=== PATIENT | female | born 1950 | race Two or more races ===

== ENCOUNTER 2016-04-24 12:51 | Emergency (ER) | payer OTHER ==
[2016-04-24 13:11] VITALS: BMI 22.6
[2016-04-24 17:13] LABS: BASOPHIL 1.2 % (0-2.0); EOSINOPHIL 4.5 % (0-4.5); MCHC 33.1 g/dl (32.0-36.0); MEAN CELL VOLUME 93.6 fl (80-96); MEAN PLT VOLUME 9.3 fl (7.5-11.1); NEUTROPHILS 60.7 % (42.8-82.8); PLATELET COUNT 265 K/MM3 (134-434); WHITE BLOOD COUNT 8.3 K/mm3 (4.0-10.0)
--- NOTE | 2016-04-24 17:25 | PDOC ---
History of Present Illness - General Chief Complaint: Pain Stated Complaint: PAIN/ RT FOOT Time Seen by Provider: 04/24/16 15:15 History Source: Patient Exam Limitations: No Limitations - History of Present Illness Initial Comments: 04/24/16 17:26 66-year-old female presents to the ED with complaints of a bump to the right side of her foot that has been there for roughly 1 month. Patient now states that radiation intimately to her right knee but skin discoloration, swelling, decreased sensation, or difficulty ambulating. Patient also states did not mention this to her PCP and decided come to the ER today for further evaluation. Patient states has mild discomfort with ambulation and denies poor fitting shoes. Patient states has not taken anything for the pain and denies any recent injury to the affected area. patient denies history of gout but has history of arthritis. Timing/Duration: constant (1 month) Severity: mild Modifying Factors: improves with: movement Associated Symptoms: reports: denies symptoms Past History - Past Medical History Allergies/Adverse Reactions: Allergies Allergy/AdvReac Type Severity Reaction Status Date / Time No Known Allergies Allergy Verified 04/24/16 13:11 Home Medications: Ambulatory Orders Atorvastatin Ca [Lipitor] 20 mg PO HS 04/24/16 Diltiazem HCl [Diltiazem 24Hr Cd] 120 mg PO DAILY 04/24/16 Glyburide [Diabeta -] 5 mg PO DAILY 04/24/16 Metformin HCl [Glucophage] 1,000 mg PO BID 04/24/16 Montelukast Na [Singulair -] 10 mg PO HS 04/24/16 Sitagliptin Phosphate [Januvia] 100 mg PO DAILY 04/24/16 Asthma: Yes Diabetes: Yes HTN: Yes - Psycho/Social/Smoking Cessation Hx Suicidal Ideation: No Smoking History: Never smoked Information on smoking cessation initiated: No Hx Alcohol Use: No Drug/Substance Use Hx: No Substance Use Type: None Patient Lives Alone: No Lives with/in: spouse/SO Review of Systems - Review of Systems Able to Perform ROS?: Yes Constitutional: No: Symptoms Reported HEENTM: No: Symptoms Reported Respiratory: No: Symptoms reported Musculoskeletal: Yes: Joint Pain (right foot ,right knee). No: Joint Swelling, Muscle Pain, Muscle Weakness, Joint Stiffness Integumentary: Yes: Lumps Neurological: No: Symptoms reported Endocrine: No: Symptoms Reported Hematologic/Lymphatic: No: Symptoms Reported *Physical Exam - Vital Signs Last Vital Signs Temp Pulse Resp BP Pulse Ox 98.5 F 88 18 133/73 97 04/24/16 13:07 04/24/16 13:07 04/24/16 13:07 04/24/16 13:07 04/24/16 13:07 - Physical Exam General Appearance: Yes: Nourished, Appropriately Dressed. No: Apparent Distress Extremity: positive: Normal Capillary Refill, Normal Range of Motion, Tender ( fixed firm 2 x 2 cm mass over the right midshaft of fifth metatarsal. no crepitus or limited ROM of rt 5th toe). negative: Normal Inspection, Pedal Edema Integumentary: negative: Erythema, Ecchymosis Neurologic: positive: Motor Strength 5/5 (ambulatory) ED Treatment Course - LABORATORY CBC & Chemistry Diagram: 04/24/16 16:40 04/24/16 16:40 - RADIOLOGY Radiology Studies Ordered: Category Date Time Status FOOT-RIGHT [RAD] Stat Radiology 04/24/16 16:25 Ordered Medical Decision Making - Medical Decision Making 04/24/16 17:30 Patient with complaints of tender bump to the right side of foot for the past month having to her right knee. Patient does have history of arthritis but denies history of gout. My exam this is likely due friction over the bony prominence vs old fracture. Patient was ordered for labs and xray 04/24/16 18:09 Laboratory Tests 04/24/16 04/24/16 16:40 16:40 WBC 8.3 Hgb 13.1 Hct 39.6 Neutrophils % 60.7 Sodium 138 Potassium 4.9 Chloride 101 Carbon Dioxide 28 Anion Gap 9 BUN 16 D Creatinine 0.6 Creat Clearance w eGFR > 60 Random Glucose 228 H Calcium 9.4 Magnesium 2.1 Total Bilirubin 0.3 D AST 13 L ALT 22 X-ray shows a faint lucent line at the base of the fifth metatarsal bone seen essentially on the frontal view only consistent with a nondisplaced fracture. Patient will be placed in an orthopedic shoe and told to follow-up with Dr. Maki. *DC/Admit/Observation/Transfer Diagnosis at time of Disposition: Fracture of metatarsal bone Qualifiers: Encounter type: initial encounter Metatarsal bone: fifth Fracture type: closed Fracture alignment: nondisplaced Laterality: right Qualified Code(s): S92.354A - Nondisplaced fracture of fifth metatarsal bone, right foot, initial encounter for closed fracture - Discharge Dispostion Disposition: HOME Condition at time of disposition: Good - Referrals Referrals: Hiren Morales MD [Primary Care Provider] - Gabo Maki MD [Staff Physician] - - Patient Instructions Printed Discharge Instructions: DI for Foot Fracture Additional Instructions: I recommend wearing the orthopedic shoe during the day and remove at night. Please follow-up with referred orthopedist although this may heal up on its own.
[2016-04-24 17:35] LABS: ALBUMIN 3.5 g/dl (3.4-5.0); ANION GAP 9 (8-16); CALCIUM 9.4 mg/dL (8.5-10.1); CO2 28 mmol/L (21-32); GLUCOSE,RANDOM 228 mg/dL (74-106); MAGNESIUM 2.1 mg/dL (1.8-2.4)
[2016-04-24 17:38] LABS: ALK PHOS 76 U/L (45-117); BILIRUBIN,TOTAL 0.3 mg/dL (0.2-1.0); CREATININE 0.6 mg/dL (0.55-1.02); SGOT/AST 13 U/L (15-37); SGPT/ALT 22 U/L (12-78)
[2016-04-24 18:30] VITALS: BP 154/68; PULSE 67; TEMP 97.4
== END 2016-04-24 18:30 | disposition home or self-care (01) ==
LOC: JER 12:51
DX: S92.354A Nondisplaced fracture of fifth metatarsal bone, right foot, initial encounter for closed fracture (principal); X58.XXXA Exposure to other specified factors, initial encounter; Y93.9 Activity, unspecified; Y92.9 Unspecified place or not applicable; J45.909 Unspecified asthma, uncomplicated; E11.9 Type 2 diabetes mellitus without complications; I10 Essential (primary) hypertension
CPT/HCPCS: 36415; 73630-TC-RT; 80053; 83735; 85025; 99284-25

== ENCOUNTER 2016-04-25 17:14 | Emergency (ER) | payer OTHER ==
--- NOTE | 2016-04-25 17:34 | PDOC ---
Rapid Medical Evaluation Time Seen by Provider: 04/25/16 17:33 Medical Evaluation: I have performed a brief in-person evaluation of this patient. The patient presents with a chief complaint of: Toe pain. 66 yo F history HTN, DM, asthma, seen in ED for toe fracture yesterday. She states that she has been taking tylenol without relief. Pertinent physical exam findings: +Tenderness and swelling over the base of 5th metatarsal. I have ordered the following: Rx for tramadol The patient will proceed to the ED for further evaluation
[2016-04-25 17:40] VITALS: BP 157/61; PULSE 81; TEMP 98.1; BMI 22.6
--- NOTE | 2016-04-25 18:01 | PDOC ---
History of Present Illness - General Chief Complaint: RX Refill Stated Complaint: PRESCRIPTION Time Seen by Provider: 04/25/16 17:33 History Source: Patient Exam Limitations: No Limitations - History of Present Illness Initial Comments: 04/25/16 18:49 Agent was seen and treated here for foot fracture yesterday but given no pain medications. Patient has used ibuprofen with minimal resolved in status, is wearing cashew keeping elevated but is complaining of severe pain to her foot. Occurred: reports: just prior to arrival Severity: reports: moderate, severe Pain Location: reports: lower extremity (left foot) Method of Injury: Yes: fall Past History - Travel Traveled outside of the country in the last 30 days: No Close contact w/someone who was outside of country & ill: No - Past Medical History Allergies/Adverse Reactions: Allergies Allergy/AdvReac Type Severity Reaction Status Date / Time No Known Allergies Allergy Verified 04/25/16 17:35 Home Medications: Ambulatory Orders Atorvastatin Ca [Lipitor] 20 mg PO HS 04/24/16 Diltiazem HCl [Diltiazem 24Hr Cd] 120 mg PO DAILY 04/24/16 Glyburide [Diabeta -] 5 mg PO DAILY 04/24/16 Metformin HCl [Glucophage] 1,000 mg PO BID 04/24/16 Montelukast Na [Singulair -] 10 mg PO HS 04/24/16 Sitagliptin Phosphate [Januvia] 100 mg PO DAILY 04/24/16 Tramadol HCl 50 mg PO Q6H PRN #12 tablet MDD 4 tabs 04/25/16 Asthma: Yes Diabetes: Yes HTN: Yes - Psycho/Social/Smoking Cessation Hx Suicidal Ideation: No Smoking History: Never smoked Hx Alcohol Use: No Drug/Substance Use Hx: No Substance Use Type: None Review of Systems - Review of Systems Able to Perform ROS?: No Is the patient limited Tajik proficient: No Constitutional: Yes: Symptoms Reported, See HPI, Malaise HEENTM: No: Symptoms Reported All Other Systems: Reviewed and Negative *Physical Exam - Vital Signs Last Vital Signs Temp Pulse Resp BP Pulse Ox 98.1 F 81 16 157/61 96 04/25/16 17:35 04/25/16 17:35 04/25/16 17:35 04/25/16 17:35 04/25/16 17:35 - Physical Exam General Appearance: Yes: Appropriately Dressed, Apparent Distress Neck: positive: Supple Musculoskeletal: positive: Normal Inspection, Decreased Range of Motion (due to pain) Integumentary: positive: Normal Color 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: 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: 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, Fully Oriented, Alert, Normal Mood/ Affect Progress Note - Progress Note Progress Note: foot pain due to fracture *DC/Admit/Observation/Transfer Diagnosis at time of Disposition: Foot fracture, right Qualifiers: Encounter type: initial encounter Fracture type: closed Qualified Code(s): S92.901A - Unspecified fracture of right foot, initial encounter for closed fracture - Discharge Dispostion Disposition: HOME Condition at time of disposition: Stable Admit: No - Prescriptions Prescriptions: Tramadol HCl 50 mg PO Q6H PRN #12 tablet MDD 4 tabs PRN Reason: Pain - Referrals Referrals: Hiren Morales MD [Primary Care Provider] - Gabo Maki MD [Staff Physician] - - Patient Instructions Printed Discharge Instructions: DI for Foot Fracture Additional Instructions: Rest, ice to area on and off for 15 minutes 4-6 times a day Avoid heavy lifting or exercise until pain and swelling is resolved or until further directed Keep area highly elevated to reduce swelling Use splints/Samuel wrap as directed Followup with orthopedist in one to 2 days if not improving, if significantly improved may wait one week for followup with orthopedist May use ibuprofen 2-200 mg tablets every 6 hours as needed for pain
== END 2016-04-25 18:15 | disposition home or self-care (01) ==
LOC: JER 17:14
DX: S92.901A Unspecified fracture of right foot, initial encounter for closed fracture (principal); E11.9 Type 2 diabetes mellitus without complications; I10 Essential (primary) hypertension; J45.909 Unspecified asthma, uncomplicated; Z79.84 Long term (current) use of oral hypoglycemic drugs
CPT/HCPCS: 99281-25

== ENCOUNTER 2017-07-20 10:51 | Emergency (ER) | payer OTHER ==
[2017-07-20 11:04] VITALS: BMI 22.8
[2017-07-20] MEDS ORDERED: KETOROLAC TROMETHAMINE 60 MG/2 ML VIAL IM ONE (11:20)
--- NOTE | 2017-07-20 11:23 | PDOC ---
History of Present Illness - General Chief Complaint: Chest Pain Stated Complaint: CHEST PAIN Time Seen by Provider: 07/20/17 11:07 History Source: Patient Exam Limitations: No Limitations - History of Present Illness Initial Comments: 07/20/17 11:16 Status post trip and fall last week falling onto her right side and incurring an injury to her right lateral rib/chest wall. States was painful, used ibuprofen but has not had significant pain relief. 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 Denies cough, fevers , shortness of breath, abdominal pain or any other injury. Shoulders arm and hip intact. Occurred: reports: last week Severity: reports: moderate Pain Location: reports: chest Method of Injury: Yes: direct blow, fall Loss of Consciousness: no loss of consciousness Associated Symptoms (Fall): chest pain (right chest wall) Past History - Travel Traveled outside of the country in the last 30 days: No Close contact w/someone who was outside of country & ill: No - Past Medical History Allergies/Adverse Reactions: Allergies Allergy/AdvReac Type Severity Reaction Status Date / Time No Known Allergies Allergy Verified 07/20/17 11:02 Home Medications: Ambulatory Orders Atorvastatin Ca [Lipitor] 20 mg PO HS 04/24/16 Diltiazem HCl [Diltiazem 24Hr Cd] 120 mg PO DAILY 04/24/16 Montelukast Na [Singulair -] 10 mg PO HS 04/24/16 Sitagliptin Phosphate [Januvia] 100 mg PO DAILY 04/24/16 Albuterol Sulfate [Proair Hfa] 8.5 gm IH PRN 07/20/17 Budesonide/Formeterol Fumarate [SYMBICORT 160/4.5mcg -] 1 inh PO DAILY 07/20/17 Metoprolol Succinate [Toprol Xl] 25 mg PO DAILY 07/20/17 Mirtazapine 15 mg PO DAILY 07/20/17 Naproxen 500 mg PO PRN PRN 07/20/17 Oxybutynin Chloride [Ditropan Xl] 10 mg PO DAILY 07/20/17 Oxycodone HCl/Acetaminophen [Percocet 5-325 mg Tablet -] 1 - 2 tab PO Q4H PRN # 10 tablet MDD 4 07/20/17 Pantoprazole Sodium 40 mg PO DAILY 07/20/17 Tolterodine Tartrate [Tolterodine Tartrate ER] 4 mg PO DAILY 07/20/17 Valsartan [Diovan] 80 mg PO DAILY 07/20/17 Valsartan [Diovan] 80 mg PO DAILY 07/20/17 Asthma: Yes COPD: No Diabetes: Yes HTN: Yes - Suicide/Smoking/Psychosocial Hx Smoking History: Never smoked Hx Alcohol Use: No Drug/Substance Use Hx: No Substance Use Type: None Review of Systems - Review of Systems Able to Perform ROS?: Yes Is the patient limited Spanish proficient: Yes Constitutional: Yes: Symptoms Reported, See HPI. No: Fever, Malaise HEENTM: Yes: See HPI. No: Symptoms Reported Respiratory: Yes: Symptoms reported, See HPI, Other (chest wall pain and pain with deep inspiration primarily right mid lateral wall). No: Cough Cardiac (ROS): No: Symptoms Reported ABD/GI: No: Symptoms Reported Musculoskeletal: No: Symptoms Reported Integumentary: Yes: Symptoms Reported, See HPI, Bruising All Other Systems: Reviewed and Negative *Physical Exam - Vital Signs Last Vital Signs Temp Pulse Resp BP Pulse Ox 98 F 81 18 138/65 99 07/20/17 10:56 07/20/17 10:56 07/20/17 10:56 07/20/17 10:56 07/20/17 10:56 - Physical Exam General Appearance: Yes: Nourished, Appropriately Dressed, Apparent Distress, Mild Distress HEENT: positive: KENIA, Normal ENT Inspection, TMs Normal, Pharynx Normal Neck: positive: Supple. negative: Tender, Lymphadenopathy (R), Lymphadenopathy (L) Respiratory/Chest: positive: Lungs Clear (no wheezing or retractions, has some mild pleuritic type chest pain to the right side however breath sounds are good and well aerated.), Normal Breath Sounds, Other (tenderness and bruising noted to right midaxillary line approximately rib 789 area, with some crepitus noted to the lateral to that area with point tenderness. Diminished soft, with no tenderness to right upper quadrant). negative: Respiratory Distress, Labored Respiration, Rhonchi, Wheezing, Plerual Rub Cardiovascular: positive: Regular Rhythm Gastrointestinal/Abdominal: positive: Normal Bowel Sounds, Soft. negative: Tender (, no bruising or bloating.), Distended, Guarding, Hepatomegaly Musculoskeletal: positive: Normal Inspection Extremity: positive: Normal Capillary Refill, Normal Inspection, Normal Range of Motion. 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 Will treat with Percocet as is probable healing rib fracture/contusion and rest. Patient understands plan and provide incentive spirometer with instructions for use. 07/20/17 13:16 *DC/Admit/Observation/Transfer Diagnosis at time of Disposition: Rib fractures Qualifiers: Encounter type: initial encounter Rib fracture type: single rib Fracture type: closed Laterality: right Qualified Code(s): S22.31XA - Fracture of one rib, right side, initial encounter for closed fracture - Discharge Dispostion Disposition: HOME Condition at time of disposition: Stable Decision to Admit order: No - Prescriptions Prescriptions: Oxycodone HCl/Acetaminophen [Percocet 5-325 mg Tablet -] 1 - 2 tab PO Q4H PRN # 10 tablet MDD 4 PRN Reason: Pain - Referrals Referrals: Hiren Morales MD [Primary Care Provider] - - Patient Instructions Printed Discharge Instructions: DI for Rib Fracture Additional Instructions: Rest, ice to area on and off for 15 minutes 4-6 times a day Avoid heavy lifting or exercise until pain and swelling is resolved or until further directed May use Tylenol or small pillow to splint chest to help assist taking big deep breath. Use incentive spirometer 10 puffs 4 times to 8 times a day to keep lungs clear and per help prevent infections Followup with private physician in one to 2 days if not improving, May use ibuprofen 2-200 mg tablets every 6 hours as needed for pain Mayt use 1/2, 1-2 tabs of Percocet every 6 hours as needed for severe pain - knowiing will make dizzy and sleepy! Return to emergency department for worsened pain, problems with breathing, fevers, cough or other problems. - Post Discharge Activity
[2017-07-20] MEDS ORDERED: KETOROLAC TROMETHAMINE 30 MG/1 ML VIAL ONE (11:27)
[2017-07-20 13:36] VITALS: BP 106/78; PULSE 71; TEMP 98.2
== END 2017-07-20 13:37 | disposition home or self-care (01) ==
LOC: JER 10:51
PROC: 3E0233Z Introduction of Anti-inflammatory into Muscle, Percutaneous Approach (ICD-10-PCS; principal; 2017-07-20)
DX: S22.31XA Fracture of one rib, right side, initial encounter for closed fracture (principal); W01.0XXA Fall on same level from slipping, tripping and stumbling without subsequent striking against object, initial encounter; Y93.89 Activity, other specified; Y92.89 Other specified places as the place of occurrence of the external cause; Y99.8 Other external cause status; I10 Essential (primary) hypertension; E11.9 Type 2 diabetes mellitus without complications; Z79.84 Long term (current) use of oral hypoglycemic drugs; J45.909 Unspecified asthma, uncomplicated
CPT/HCPCS: 71101-TC-RT-FY; 96372; 99282-25

== ENCOUNTER 2018-02-01 12:21 | Emergency (ER) | payer OTHER ==
[2018-02-01 12:29] VITALS: BP 137/65; PULSE 90; TEMP 98.1; BMI 22.6
--- NOTE | 2018-02-01 12:44 | PDOC ---
History of Present Illness - General Chief Complaint: Pain, Acute Stated Complaint: EARACHE, BURN Time Seen by Provider: 02/01/18 12:33 History Source: Patient - History of Present Illness Initial Comments: 02/01/18 13:55 67 year old female with left ear hearing loss over the several weeks. patient was given debrox for cerumen with some imporvement. continue to have decreased hearing in the left ear. patient reports that 3 days ago spilled hot coffee onto left breast sustained a small burn. had minimal pain at the site. Past History - Past Medical History Allergies/Adverse Reactions: Allergies Allergy/AdvReac Type Severity Reaction Status Date / Time No Known Allergies Allergy Verified 02/01/18 12:23 Home Medications: Ambulatory Orders Atorvastatin Ca [Lipitor] 20 mg PO HS 04/24/16 Diltiazem HCl [Diltiazem 24Hr Cd] 120 mg PO DAILY 04/24/16 Montelukast Na [Singulair -] 10 mg PO HS 04/24/16 Sitagliptin Phosphate [Januvia] 100 mg PO DAILY 04/24/16 Albuterol Sulfate [Proair Hfa] 8.5 gm IH PRN 07/20/17 Budesonide/Formeterol Fumarate [SYMBICORT 160/4.5mcg -] 1 inh PO DAILY 07/20/17 Metoprolol Succinate [Toprol Xl] 25 mg PO DAILY 07/20/17 Mirtazapine 15 mg PO DAILY 07/20/17 Naproxen 500 mg PO PRN PRN 07/20/17 Oxybutynin Chloride [Ditropan Xl] 10 mg PO DAILY 07/20/17 Oxycodone HCl/Acetaminophen [Percocet 5-325 mg Tablet -] 1 - 2 tab PO Q4H PRN # 10 tablet MDD 4 07/20/17 Pantoprazole Sodium 40 mg PO DAILY 07/20/17 Tolterodine Tartrate [Tolterodine Tartrate ER] 4 mg PO DAILY 07/20/17 Valsartan [Diovan] 80 mg PO DAILY 07/20/17 Valsartan [Diovan] 80 mg PO DAILY 07/20/17 Cephalexin Monohydrate [Keflex -] 500 mg PO Q6H #40 capsule 02/01/18 Silver Sulfadiazine [Silvadene] 1 applic TP QID #1 cream..g. 02/01/18 Asthma: Yes COPD: No Diabetes: Yes HTN: Yes - Suicide/Smoking/Psychosocial Hx Smoking History: Never smoked Have you smoked in the past 12 months: No Information on smoking cessation initiated: Yes Hx Alcohol Use: No Drug/Substance Use Hx: No Substance Use Type: None *Physical Exam - Vital Signs Last Vital Signs Temp Pulse Resp BP Pulse Ox 98.1 F 90 18 137/65 98 02/01/18 12:23 02/01/18 12:23 02/01/18 12:23 02/01/18 12:23 02/01/18 12:23 - Physical Exam General Appearance: Yes: Appropriately Dressed HEENT: positive: Other (left ear partial occluded by cerumen no erythema) Respiratory/Chest: positive: Lungs Clear, Normal Breath Sounds Integumentary: positive: Other (erythema with minimal crusting to left breast curn site) Neurologic: positive: Fully Oriented, Alert, Normal Mood/Affect Moderate Sedation - Procedure Monitoring Vital Signs: Procedure Monitoring Vital Signs Temperature 98.1 F 02/01/18 12:23 Pulse Rate 90 02/01/18 12:23 Respiratory Rate 18 02/01/18 12:23 Blood Pressure 137/65 02/01/18 12:23 O2 Sat by Pulse Oximetry (%) 98 02/01/18 12:23 *DC/Admit/Observation/Transfer Diagnosis at time of Disposition: Cellulitis Qualifiers: Site of cellulitis: other site Qualified Code(s): L03.818 - Cellulitis of other sites Left ear hearing loss Qualifiers: Hearing loss type: unspecified Qualified Code(s): H91.92 - Unspecified hearing loss, left ear - Discharge Dispostion Disposition: HOME - Prescriptions Prescriptions: Cephalexin Monohydrate [Keflex -] 500 mg PO Q6H #40 capsule Silver Sulfadiazine [Silvadene] 1 applic TP QID #1 cream..g. - Referrals Referrals: Hiren Morales MD [Primary Care Provider] - Bennett Marcial MD [Staff Physician] - Call tomorrow - Patient Instructions Printed Discharge Instructions: Cellulitis Additional Instructions: apply silvadene to the burn area. take cephalexin as ordered. follow up with your doctor in 2 days for a wound check. return to the ER if symptoms worsen including fever, redness spreading/ streaking, / increased. please follow up with ENT for hearing test and evaluation - Post Discharge Activity
[2018-02-01] MEDS ORDERED: SILVER SULFADIAZINE 1% TOP CREAM 50 GM JAR TP ONE (13:03)
== END 2018-02-01 13:16 | disposition home or self-care (01) ==
LOC: JERFT 12:21
DX: L03.818 Cellulitis of other sites (principal); H91.92 Unspecified hearing loss, left ear; X10.0XXA Contact with hot drinks, initial encounter; Y93.89 Activity, other specified; Y92.89 Other specified places as the place of occurrence of the external cause; I10 Essential (primary) hypertension; J45.909 Unspecified asthma, uncomplicated; E11.9 Type 2 diabetes mellitus without complications
CPT/HCPCS: 99281-25

== ENCOUNTER 2018-08-02 11:21 | Inpatient (IN) | payer OTHER ==
[2018-08-02] MEDS ORDERED: MECLIZINE HCL 25 MG TABLET (FP) PO ONE (12:09)
--- NOTE | 2018-08-02 12:34 | PDOC ---
History of Present Illness - General Chief Complaint: Lightheaded Stated Complaint: DIZZY Time Seen by Provider: 08/02/18 11:56 - History of Present Illness Initial Comments: 08/02/18 13:07 68f with pmh of asthma and HTN presents to the Ed with dizziness/vertigo and change in vision symptoms for the past 2 days associated with difficulty walking. She went to the ER yesterday at [facility] and was discharge after Ct head, labs and ekg were found within normal limits. She says she never had those symptoms before. PCP: Andrew Past History - Past Medical History Allergies/Adverse Reactions: Allergies Allergy/AdvReac Type Severity Reaction Status Date / Time No Known Allergies Allergy Verified 02/01/18 12:23 Home Medications: Ambulatory Orders Atorvastatin Ca [Lipitor] 20 mg PO HS 04/24/16 Diltiazem HCl [Diltiazem 24Hr Cd] 120 mg PO DAILY 04/24/16 Montelukast Na [Singulair -] 10 mg PO HS 04/24/16 Sitagliptin Phosphate [Januvia] 100 mg PO DAILY 04/24/16 Albuterol Sulfate [Proair Hfa] 8.5 gm IH PRN 07/20/17 Budesonide/Formeterol Fumarate [SYMBICORT 160/4.5mcg -] 1 inh PO DAILY 07/20/17 Metoprolol Succinate [Toprol Xl] 25 mg PO DAILY 07/20/17 Mirtazapine 15 mg PO DAILY 07/20/17 Naproxen 500 mg PO PRN PRN 07/20/17 Oxybutynin Chloride [Ditropan Xl] 10 mg PO DAILY 07/20/17 Oxycodone HCl/Acetaminophen [Percocet 5-325 mg Tablet -] 1 - 2 tab PO Q4H PRN # 10 tablet MDD 4 07/20/17 Pantoprazole Sodium 40 mg PO DAILY 07/20/17 Tolterodine Tartrate [Tolterodine Tartrate ER] 4 mg PO DAILY 07/20/17 Valsartan [Diovan] 80 mg PO DAILY 07/20/17 Cephalexin Monohydrate [Keflex -] 500 mg PO Q6H #40 capsule 02/01/18 Silver Sulfadiazine [Silvadene] 1 applic TP QID #1 cream..g. 02/01/18 Asthma: Yes COPD: No Diabetes: Yes HTN: Yes - Immunization History Immunization Up to Date: No - Suicide/Smoking/Psychosocial Hx Smoking History: Never smoked Have you smoked in the past 12 months: No Information on smoking cessation initiated: No Hx Alcohol Use: No Drug/Substance Use Hx: No Substance Use Type: None Review of Systems - Review of Systems Able to Perform ROS?: Yes Is the patient limited Korean proficient: No Constitutional: No: Symptoms Reported HEENTM: Yes: Blurred Vision Respiratory: No: Symptoms reported Cardiac (ROS): No: Symptoms Reported ABD/GI: No: Symptoms Reported : No: Symptoms Reported Musculoskeletal: No: Symptoms Reported Integumentary: No: Symptoms Reported Neurological: Yes: Unsteady Gait, Dizziness. No: Headache, Numbness, Paresthesia, Seizure, Tingling All Other Systems: Reviewed and Negative *Physical Exam - Vital Signs Last Vital Signs Temp Pulse Resp BP Pulse Ox 98.6 F 96 H 16 143/68 95 08/02/18 11:27 08/02/18 11:27 08/02/18 11:27 08/02/18 11:27 08/02/18 11:27 - Physical Exam General Appearance: Yes: Nourished, Appropriately Dressed, Moderate Distress HEENT: positive: EOMI, KENIA, Normal ENT Inspection Respiratory/Chest: positive: Lungs Clear, Normal Breath Sounds. negative: Chest Tender, Respiratory Distress Cardiovascular: positive: Regular Rhythm, Regular Rate, S1, S2 Gastrointestinal/Abdominal: positive: Normal Bowel Sounds, Flat, Soft. negative : Tender Neurologic: positive: Fully Oriented, Alert. 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 ) ED Treatment Course - LABORATORY CBC & Chemistry Diagram: 08/02/18 14:00 08/02/18 14:00 Medical Decision Making - Medical Decision Making 08/02/18 13:11 68F with cerebella ataxia and dizziness/vertigo as well as changes in vision. Will need to r/o for posterior stroke. Stroke workup and Neurology consult. Will admit to stroke unit. Patient will get MRI/MRA 08/02/18 14:50 Patent hyperglycemic at 487. Will give bolus of NS *DC/Admit/Observation/Transfer Diagnosis at time of Disposition: Dizziness, Cerebellar ataxia - Discharge Dispostion Condition at time of disposition: Stable Decision to Admit order: Yes - Referrals - Patient Instructions - Post Discharge Activity
[2018-08-02] MEDS ORDERED: MECLIZINE HCL 25 MG TABLET (FP) ONE (12:56)
[2018-08-02] MEDS ORDERED: ONDANSETRON 4 MG/2 ML VIAL IVPUSH ONE (13:06)
--- NOTE | 2018-08-02 13:17 | PDOC ---
Documentation entered by Evelyn Almanzar SCRIBE, acting as scribe for Jovan Ribera MD. Jovan Ribera MD: This documentation has been prepared by the Jenelle foster Sammi, SCRIBE, under my direction and personally reviewed by me in its entirety. I confirm that the documentation accurately reflects all work, treatment, procedures, and medical decision making performed by me. Attending Attestation - Resident Resident Name: Akash Cunningham - ED Attending Attestation I have performed the following: I have examined & evaluated the patient, The case was reviewed & discussed with the resident, I agree w/resident's findings & plan, Exceptions are as noted - HPI HPI: 08/02/18 12:16 The patient is a 68 year old female, with a significant PMH of vertigo, HTN, DM , asthma, who presents to the emergency department for evaluation of 3 days of worsening dizziness. The patient describes that the room is spinning and is exacerbated with movements. Pt states that this does not feel like her previous vertigo. Pt also endorses "flashing" sensation in her L visual field. Denies any weakness or numbness in her extremities. Denies nausea and vomiting. The patient notes she was evaluated at [facility] yesterday where labs and CT scan were reportedly normal, but she was discharged without any improvement in her symptoms. Allergies: NKDA PCP: Fawad - Physicial Exam PE: 08/02/18 13:11 "GENERAL: Awake, alert, and fully oriented, in no acute distress. HEAD: No signs of trauma EYES: PERRLA, EOMI, sclera anicteric, conjunctiva clear ENT: Auricles normal inspection, hearing grossly normal, nares patent, oropharynx clear without exudates. Moist mucosa NECK: Nontender, no stepoffs, Normal ROM, supple, no lymphadenopathy, JVD, or masses LUNGS: Breath sounds equal, clear to auscultation bilaterally. No wheezes, and no crackles HEART: Regular rate and rhythm, normal S1 and S2, no murmurs, rubs or gallops ABDOMEN: Soft, nontender, normoactive bowel sounds. No guarding, no rebound. No masses EXTREMITIES: Normal range of motion, no edema. No clubbing or cyanosis. No cords, erythema, or tenderness NEUROLOGICAL: + Ataxia, + abnormal [id number], Cranial nerves II through XII intact. 5/5 strength and sensation in all extremities SKIN: Warm, Dry, normal turgor, no rashes or lesions noted. - Critical Care Time Total Critical Care Time: 60 Critical Care Statement: The care of this patient involved high complexity decision making to prevent further life threatening deterioration of the patient 's condition and/or to evaluate & treat vital organ system(s) failure or risk of failure. - Medical Decision Making 08/02/18 13:13 68 F with room-spinning dizziness. On exam found to have significant ataxia and dysmetria. Possible peripheral vertigo, but concerning for acute posterior stroke. Pt is well outside window for tPA. - Labs - CT head - Neuro consult - MRI NIH Stroke Scale - Last Known Well Date/Time & Onset Date Last Known Well: 07/30/18 Time Last Known Well: 20:00 - Initial Evaluation Level of consciousness: Alert Ask patient the month and their age: Answers both correctly Ask patient to open & close eyes; make fist and let go: Obeys both correctly Best gaze (horizontal eye movement): Normal Visual field testing: Partial hemianopia Facial paresis (Show teeth/raise eyebrows/close eyes tight): Normal symmetrical movement Motor Function: Left Arm: Normal Motor Function: Right Arm: Normal (extends arm 90 (or 45) degrees for 10 seconds without drift Motor Function: Left Leg: Normal (extends leg 30 degrees for 5 seconds without drift) Motor Function: Right Leg: Normal (extends leg 30 degrees for 5 seconds without drift) Limb Ataxia: Present in two limbs Sensory(Use pinprick test arms,legs,trunk,face/side to side): Normal Best language (Describe picture, name items, read sentences): No Aphasia Dysarthria (read several words): Normal articulation Extinction and Inattention: No abnormality - Total Score NIH Stroke Scale Score: 3
[2018-08-02] MEDS ORDERED: ONDANSETRON 4 MG/2 ML VIAL ONE (14:14)
[2018-08-02 14:31] LABS: BASO % 0.8 % (0-2.0); EOS % 1.3 % (0-4.5); HEMATOCRIT 42.9 % (32.4-45.2); HEMOGLOBIN 14.2 GM/dL (10.7-15.3); LYMPH % 19.2 % (8-40); MCH 30.9 pg (25.7-33.7); MCHC 33.2 g/dl (32.0-36.0); MEAN CELL VOLUME 93.3 fl (80-96); MEAN PLT VOLUME 9.4 fl (7.5-11.1); MONO % 5.8 % (3.8-10.2); NEUT % 72.9 % (42.8-82.8); PLATELET COUNT 314 K/MM3 (134-434); RDW 12.1 % (11.6-15.6); WHITE BLOOD COUNT 9.1 K/mm3 (4.0-10.0)
[2018-08-02 14:39] LABS: HDL CHOLESTEROL 48 mg/dL (40-60)
[2018-08-02 14:44] LABS: INR 0.91 (0.83-1.09); PROTHROMBIN TIME (PATIENT) 10.7 SEC (9.7-13.0)
[2018-08-02 14:48] LABS: ALBUMIN 3.7 g/dl (3.4-5.0); BILIRUBIN,TOTAL 0.3 mg/dL (0.2-1); BLOOD UREA NITROGEN 17.5 mg/dL (7-18); CALCIUM 9.4 mg/dL (8.5-10.1); CREATININE 0.9 mg/dL (0.55-1.3); POTASSIUM 4.7 mmol/L (3.5-5.1); TOT PROT 7.3 g/dl (6.4-8.2)
[2018-08-02] MEDS ORDERED: SODIUM CHLORIDE 1,000 ML IV STA (14:49)
[2018-08-02] MEDS ORDERED: ALBUTEROL SO4 8 GM HFA INHALER IH PRN (15:30)
[2018-08-02] MEDS ORDERED: INSULIN SLIDING SCALE (NOVOLOG) 1 VIAL SQ SCH (16:30)
--- NOTE | 2018-08-02 16:57 | CON.NEURO ---
Consult - Alcohol/Substance Use Hx Alcohol Use: No - Smoking History Smoking history: Never smoked Have you smoked in the past 12 months: No Home Medications - Allergies Allergies/Adverse Reactions: Allergies Allergy/AdvReac Type Severity Reaction Status Date / Time No Known Allergies Allergy Verified 02/01/18 12:23 - Home Medications Home Medications: Ambulatory Orders Atorvastatin Ca [Lipitor] 20 mg PO HS 04/24/16 Diltiazem HCl [Diltiazem 24Hr Cd] 120 mg PO DAILY 04/24/16 Montelukast Na [Singulair -] 10 mg PO HS 04/24/16 Sitagliptin Phosphate [Januvia] 100 mg PO DAILY 04/24/16 Albuterol Sulfate [Proair Hfa] 8.5 gm IH PRN 07/20/17 Budesonide/Formeterol Fumarate [SYMBICORT 160/4.5mcg -] 1 inh PO DAILY 07/20/17 Metoprolol Succinate [Toprol Xl] 25 mg PO DAILY 07/20/17 Mirtazapine 15 mg PO DAILY 07/20/17 Naproxen 500 mg PO PRN PRN 07/20/17 Oxybutynin Chloride [Ditropan Xl] 10 mg PO DAILY 07/20/17 Oxycodone HCl/Acetaminophen [Percocet 5-325 mg Tablet -] 1 - 2 tab PO Q4H PRN # 10 tablet MDD 4 07/20/17 Pantoprazole Sodium 40 mg PO DAILY 07/20/17 Tolterodine Tartrate [Tolterodine Tartrate ER] 4 mg PO DAILY 07/20/17 Valsartan [Diovan] 80 mg PO DAILY 07/20/17 Cephalexin Monohydrate [Keflex -] 500 mg PO Q6H #40 capsule 02/01/18 Silver Sulfadiazine [Silvadene] 1 applic TP QID #1 cream..g. 02/01/18 Physical Exam-Neuro Vital Signs: Vital Signs Temperature 98.6 F 08/02/18 11:27 Pulse Rate 96 H 08/02/18 11:27 Respiratory Rate 16 08/02/18 11:27 Blood Pressure 143/68 08/02/18 11:27 O2 Sat by Pulse Oximetry (%) 95 08/02/18 11:27 Labs: CBC, BMP 08/02/18 14:00 08/02/18 14:00 INR, PTT INR 0.91 (0.83-1.09) 08/02/18 14:00 Assessment/Plan CC Acute vertigo HPI 68 year old female history of asthma, dm htn. Patient came to hospital for acute vertigo, she is feeling spinnning sensation. There is no other focal neurological symptoms, including dysphagia, dysarthria or diplopia Patinet has no loc, no seizrue like activity, no weaknes or nubness. She has not had ct head is pending. PMH as above FH,ROS,SH reviewed in chart Allergies/Adverse Reactions: Allergies Allergy/AdvReac Type Severity Reaction Status Date / Time No Known Allergies Allergy Verified 02/01/18 12:23 Home Medications: Ambulatory Orders Atorvastatin Ca [Lipitor] 20 mg PO HS 04/24/16 Diltiazem HCl [Diltiazem 24Hr Cd] 120 mg PO DAILY 04/24/16 Montelukast Na [Singulair -] 10 mg PO HS 04/24/16 Sitagliptin Phosphate [Januvia] 100 mg PO DAILY 04/24/16 Albuterol Sulfate [Proair Hfa] 8.5 gm IH PRN 07/20/17 Budesonide/Formeterol Fumarate [SYMBICORT 160/4.5mcg -] 1 inh PO DAILY 07/20/17 Metoprolol Succinate [Toprol Xl] 25 mg PO DAILY 07/20/17 Mirtazapine 15 mg PO DAILY 07/20/17 Naproxen 500 mg PO PRN PRN 07/20/17 Oxybutynin Chloride [Ditropan Xl] 10 mg PO DAILY 07/20/17 Oxycodone HCl/Acetaminophen [Percocet 5-325 mg Tablet -] 1 - 2 tab PO Q4H PRN # 10 tablet MDD 4 07/20/17 Pantoprazole Sodium 40 mg PO DAILY 07/20/17 Tolterodine Tartrate [Tolterodine Tartrate ER] 4 mg PO DAILY 07/20/17 Valsartan [Diovan] 80 mg PO DAILY 07/20/17 Cephalexin Monohydrate [Keflex -] 500 mg PO Q6H #40 capsule 02/01/18 Silver Sulfadiazine [Silvadene] 1 applic TP QID #1 cream..g. 02/01/18 NEUROLOGICAL EXAMIANTION Alert oriented x 3, speech is normal, afebrile and neck is supple bp 143/86 eomi, no nystagmus, pupils reactive no face asymmetry motor 5/5 all ext able to walk around ftn is normal ct head is pending Assessment/Plan most ospina bppv vs cerebellar stroke Plan_ concur wtih doing ct head and mri of brain - meclizine prn PT if admitted continue to follow Thanking you so much Nithin Byrd MD
--- NOTE | 2018-08-02 17:16 | HP ---
Admitting History and Physical - Admission Chief Complaint: dizziness History of Present Illness: 68 year old female PMHx DM2, HTN, Asthma who presents with vertigo. Patient states that a few days ago she started feeling like the room was spinning. She went to [facility] ED and reportedly had a CT head and blood work which was normal and she was sent home. She continued to have vertigo and felt like she couldn't walk without falling. She has no other symptoms, denies cp, sob, palpitations, abdominal pain, n/v/d, no change in vision, no headaches. No recent illness or travel. History Source: Patient Limitations to Obtaining History: Poor Historian - Past Medical History Cardiovascular: Yes: HTN Pulmonary: Yes: Asthma Endocrine: Yes: Diabetes Mellitus - Past Surgical History Past Surgical History: Yes: Arthrosocopy - Smoking History Smoking history: Never smoked Have you smoked in the past 12 months: No - Alcohol/Substance Use Hx Alcohol Use: No - Social History Usual Living Arrangement: Yes: Alone Home Medications - Allergies Allergies/Adverse Reactions: Allergies Allergy/AdvReac Type Severity Reaction Status Date / Time No Known Allergies Allergy Verified 02/01/18 12:23 - Home Medications Home Medications: Ambulatory Orders Atorvastatin Ca [Lipitor] 20 mg PO HS 04/24/16 Diltiazem HCl [Diltiazem 24Hr Cd] 120 mg PO DAILY 04/24/16 Montelukast Na [Singulair -] 10 mg PO HS 04/24/16 Sitagliptin Phosphate [Januvia] 100 mg PO DAILY 04/24/16 Albuterol Sulfate [Proair Hfa] 8.5 gm IH PRN 07/20/17 Budesonide/Formeterol Fumarate [SYMBICORT 160/4.5mcg -] 1 inh PO DAILY 07/20/17 Metoprolol Succinate [Toprol Xl] 25 mg PO DAILY 07/20/17 Mirtazapine 15 mg PO DAILY 07/20/17 Naproxen 500 mg PO PRN PRN 07/20/17 Oxybutynin Chloride [Ditropan Xl] 10 mg PO DAILY 07/20/17 Oxycodone HCl/Acetaminophen [Percocet 5-325 mg Tablet -] 1 - 2 tab PO Q4H PRN # 10 tablet MDD 4 07/20/17 Pantoprazole Sodium 40 mg PO DAILY 07/20/17 Tolterodine Tartrate [Tolterodine Tartrate ER] 4 mg PO DAILY 07/20/17 Valsartan [Diovan] 80 mg PO DAILY 07/20/17 Cephalexin Monohydrate [Keflex -] 500 mg PO Q6H #40 capsule 02/01/18 Silver Sulfadiazine [Silvadene] 1 applic TP QID #1 cream..g. 02/01/18 Family Disease History - Family Disease History Family History: Denies Family Disease History: CA: Sister Review of Systems - Review of Systems Constitutional: reports: No Symptoms Eyes: reports: No Symptoms. denies: Double Vision, Recent Change in Vision HENT: reports: No Symptoms Neck: reports: No Symptoms Cardiovascular: reports: No Symptoms Respiratory: reports: No Symptoms Gastrointestinal: reports: No Symptoms Genitourinary: reports: No Symptoms Breasts: reports: No Symptoms Reported Musculoskeletal: reports: No Symptoms Integumentary: reports: No Symptoms Neurological: reports: Dizziness, Incoordination, Unsteady Gait Endocrine: reports: No Symptoms Hematology/Lymphatic: reports: No Symptoms Psychiatric: reports: No Symptoms Physical Examination Vital Signs: Vital Signs Temperature 98.6 F 08/02/18 11:27 Pulse Rate 96 H 08/02/18 11:27 Respiratory Rate 16 08/02/18 11:27 Blood Pressure 143/68 08/02/18 11:27 O2 Sat by Pulse Oximetry (%) 95 08/02/18 11:27 Constitutional: Yes: Well Nourished, No Distress, Calm Eyes: Yes: WNL, Conjunctiva Clear, EOM Intact HENT: Yes: WNL, Atraumatic, Normocephalic Neck: Yes: WNL, Supple, Trachea Midline Cardiovascular: Yes: WNL, Regular Rate and Rhythm Respiratory: Yes: WNL, Regular, CTA Bilaterally Gastrointestinal: Yes: WNL, Normal Bowel Sounds, Soft Musculoskeletal: Yes: WNL Extremities: Yes: WNL Edema: No Peripheral Pulses WNL: Yes Neurological: Yes: WNL, Alert, Oriented, Cran Nerves II-XII Intact. 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
[2018-08-02 17:46] LABS: EPI CELLS 0.2 /HPF (0-5/HPF); HYALINE CASTS 0 /lpf (0-8); PH,URINE 5.5 (5.0-8.0); URINE APPEARANCE CLEAR; URINE BACTERIA 58.8 /hpf (NEGATIVE); URINE BILIRUBIN NEGATIVE (NEGATIVE); URINE COLOR YELLOW; URINE GLUCOSE (UA) 3+ (NEGATIVE); URINE KETONE 1+ (NEGATIVE); URINE LEUK ESTERASE 1+ (NEGATIVE); URINE NITRITE NEGATIVE (NEGATIVE); URINE PROTEIN NEGATIVE (NEGATIVE); URINE RBC 2 /hpf (0-4); URINE UROBILINOGEN 0.2 mg/dL (0.2-1.0); URINE WBC 23 /hpf (0-5)
[2018-08-02 17:48] LABS: CHOLESTEROL 343 mg/dL (50-200)
[2018-08-02] MEDS: SILVER SULFADIAZINE 1% TOP CREAM 50 GM JAR TP SCH ×2 (18:08→22:53)
[2018-08-02] MEDS ORDERED: INSULIN (NOVOLOG) ASPART 100 UNITS/ML 10ML VIAL ONE (22:34)
[2018-08-02] MEDS ORDERED: HEPARIN NA (PORCINE) 5,000 UNITS/ML 1ML VIAL ONE (22:35)
[2018-08-02] MEDS: HEPARIN NA (PORCINE) 5,000 UNITS/ML 1ML VIAL SQ SCH (22:35)
[2018-08-02] MEDS: INSULIN SLIDING SCALE (NOVOLOG) 1 VIAL SQ SCH (22:35)
[2018-08-02] MEDS: MIRTAZAPINE 15 MG TABLET (FP) PO SCH (22:40)
[2018-08-02] MEDS: ATORVASTATIN CA 20 MG TABLET (FP) PO SCH (22:40)
[2018-08-02] MEDS: MONTELUKAST NA 10 MG TABLET PO SCH (22:40)
[2018-08-03 03:05] VITALS: BMI 22.0
[2018-08-03] MEDS: sitaGLIPtin PHOSPHATE 100 MG TABLET (FP) PO SCH (06:03)
[2018-08-03] MEDS: INSULIN SLIDING SCALE (NOVOLOG) 1 VIAL SQ SCH ×4 (06:03→21:34)
[2018-08-03 07:22] LABS: BLOOD UREA NITROGEN 13.4 mg/dL (7-18); CALCIUM 8.4 mg/dL (8.5-10.1); CREATININE 0.6 mg/dL (0.55-1.3); POTASSIUM 4.2 mmol/L (3.5-5.1)
[2018-08-03 07:49] LABS: BASO % 0.7 % (0-2.0); EOS % 2.1 % (0-4.5); HEMATOCRIT 38.3 % (32.4-45.2); HEMOGLOBIN 12.6 GM/dL (10.7-15.3); LYMPH % 23.5 % (8-40); MCH 31.1 pg (25.7-33.7); MEAN CELL VOLUME 94.1 fl (80-96); MEAN PLT VOLUME 9.9 fl (7.5-11.1); MONO % 4.3 % (3.8-10.2); NEUT % 69.4 % (42.8-82.8); RBC 4.07 M/mm3 (3.60-5.2); WHITE BLOOD COUNT 6.4 K/mm3 (4.0-10.0)
[2018-08-03 08:47] LABS: PLATELET COUNT 269 K/MM3 (134-434)
[2018-08-03] MEDS ORDERED: PT OWN MED DRAWER 7, Y5N ONE ×2 (09:21→10:08)
[2018-08-03] MEDS ORDERED: VALSARTAN 80 MG TABLET (UD) PO SCH (10:00)
[2018-08-03] MEDS ORDERED: PATIENT'S OWN MEDICATION (NON-FORMULARY) (Oxybutynin Chloride [Ditropan Xl] 10 MG) PO SCH (10:00)
[2018-08-03] MEDS ORDERED: BUDESONIDE/FORMETEROL FUMARATE 160/4.5 mcg INHALER IH SCH (10:00)
[2018-08-03] MEDS ORDERED: metoPROLOL SUCCINATE 25 MG TAB.SR.24H (FP) PO SCH (10:00)
[2018-08-03] MEDS: SOLIFENACIN SUCCINATE 5 MG TAB PO SCH (10:05)
[2018-08-03] MEDS: HEPARIN NA (PORCINE) 5,000 UNITS/ML 1ML VIAL SQ SCH ×2 (10:05→21:34)
[2018-08-03] MEDS: MECLIZINE HCL 25 MG TABLET (FP) PO PRN (10:05)
[2018-08-03] MEDS: PANTOPRAZOLE 40 MG TABLET (FP) PO SCH (10:05)
[2018-08-03] MEDS: VALSARTAN 80 MG TABLET (UD) PO SCH ×2 (10:06→17:59)
[2018-08-03] MEDS: metoPROLOL SUCCINATE 25 MG TAB.SR.24H (FP) PO SCH ×2 (10:07→17:59)
[2018-08-03] MEDS: SILVER SULFADIAZINE 1% TOP CREAM 50 GM JAR TP SCH ×4 (10:12→21:43)
[2018-08-03] MEDS: TOLTERODINE TARTRATE LA 4 MG CAP.SR.24H (FP) PO SCH (11:02)
--- NOTE | 2018-08-03 11:02 | PN ---
Physical Exam: SUBJECTIVE: Patient seen and examined, is still dissy , received the OBJECTIVE: Vital Signs Period Temp Pulse Resp BP Sys/Gonzalez Pulse Ox Last 24 Hr 97.8 F-99.0 F 71-96 16-20 121-154/52-78 95-98 GENERAL: The patient is awake, alert, and fully oriented, in no acute distress. HEAD: Normal with no signs of trauma. EYES: PERRL, extraocular movements intact, sclera anicteric, conjunctiva clear. No ptosis. ENT: Ears normal, nares patent, oropharynx clear without exudates, moist mucous membranes. NECK: Trachea midline, full range of motion, supple. LUNGS: Breath sounds equal, clear to auscultation bilaterally, no wheezes, no crackles, no accessory muscle use. HEART: Regular rate and rhythm, S1, S2 without murmur, rub or gallop. ABDOMEN: Soft, nontender, nondistended, normoactive bowel sounds, no guarding, no rebound, no hepatosplenomegaly, no masses. EXTREMITIES: 2+ pulses, warm, well-perfused, no edema. NEUROLOGICAL: Cranial nerves II through XII grossly intact. Normal speech, gait not observed as pt is dissy PSYCH: Normal mood, normal affect. SKIN: Warm, dry, normal turgor, no rashes or lesions noted Ros pos for dissiness, Laboratory Results - last 24 hr 08/02/18 08/02/18 08/02/18 14:00 14:00 14:00 WBC 9.1 RBC 4.60 Hgb 14.2 Hct 42.9 MCV 93.3 MCH 30.9 MCHC 33.2 RDW 12.1 Plt Count 314 MPV 9.4 Absolute Neuts (auto) 6.6 Neutrophils % 72.9 D Lymphocytes % 19.2 D Monocytes % 5.8 Eosinophils % 1.3 Basophils % 0.8 Nucleated RBC % 0 PT with INR INR Sodium 134 L Potassium 4.7 Chloride 98 Carbon Dioxide 29 Anion Gap 7 L BUN 17.5 Creatinine 0.9 Est GFR (CKD-EPI)AfAm 76.14 Est GFR (CKD-EPI)NonAf 65.70 POC Glucometer Random Glucose 481 H* Calcium 9.4 Total Bilirubin 0.3 AST 11 L ALT 21 Alkaline Phosphatase 110 Creatine Kinase 72 Troponin I < 0.02 Total Protein 7.3 Albumin 3.7 Triglycerides 464 H Cholesterol Total LDL Cholesterol HDL Cholesterol 48 Urine Color Urine Appearance Urine pH Ur Specific [place] Urine Protein Urine Glucose (UA) Urine Ketones Urine Blood Urine Nitrite Urine Bilirubin Urine Urobilinogen Ur Leukocyte Esterase Urine WBC (Auto) Urine RBC (Auto) Urine Casts (Auto) U Epithel Cells (Auto) Urine Bacteria (Auto) Blood Type Antibody Screen 08/02/18 08/02/18 08/02/18 14:00 14:00 14:00 WBC RBC Hgb Hct MCV MCH MCHC RDW Plt Count MPV Absolute Neuts (auto) Neutrophils % Lymphocytes % Monocytes % Eosinophils % Basophils % Nucleated RBC % PT with INR 10.70 INR 0.91 Sodium Potassium Chloride Carbon Dioxide Anion Gap BUN Creatinine Est GFR (CKD-EPI)AfAm Est GFR (CKD-EPI)NonAf POC Glucometer Random Glucose Calcium Total Bilirubin AST ALT Alkaline Phosphatase Creatine Kinase Troponin I Total Protein Albumin Triglycerides Cholesterol 343 H Total LDL Cholesterol 228 H HDL Cholesterol Urine Color Urine Appearance Urine pH Ur Specific [place] Urine Protein Urine Glucose (UA) Urine Ketones Urine Blood Urine Nitrite Urine Bilirubin Urine Urobilinogen Ur Leukocyte Esterase Urine WBC (Auto) Urine RBC (Auto) Urine Casts (Auto) U Epithel Cells (Auto) Urine Bacteria (Auto) Blood Type A POSITIVE Antibody Screen Negative 08/02/18 08/02/18 08/02/18 16:57 17:26 21:47 WBC RBC Hgb Hct MCV MCH MCHC RDW Plt Count MPV Absolute Neuts (auto) Neutrophils % Lymphocytes % Monocytes % Eosinophils % Basophils % Nucleated RBC % PT with INR INR Sodium Potassium Chloride Carbon Dioxide Anion Gap BUN Creatinine Est GFR (CKD-EPI)AfAm Est GFR (CKD-EPI)NonAf POC Glucometer 330 289 Random Glucose Calcium Total Bilirubin AST ALT Alkaline Phosphatase Creatine Kinase Troponin I Total Protein Albumin Triglycerides Cholesterol Total LDL Cholesterol HDL Cholesterol Urine Color Yellow Urine Appearance Clear Urine pH 5.5 Ur Specific [place] 1.035 Urine Protein Negative Urine Glucose (UA) 3+ H Urine Ketones 1+ H Urine Blood Negative Urine Nitrite Negative Urine Bilirubin Negative Urine Urobilinogen 0.2 Ur Leukocyte Esterase 1+ H Urine WBC (Auto) 23 Urine RBC (Auto) 2 Urine Casts (Auto) 0 U Epithel Cells (Auto) 0.2 Urine Bacteria (Auto) 58.8 Blood Type Antibody Screen 08/03/18 08/03/18 08/03/18 05:30 05:30 05:57 WBC 6.4 RBC 4.07 Hgb 12.6 Hct 38.3 MCV 94.1 MCH 31.1 MCHC 33.0 RDW 12.0 Plt Count 269 MPV 9.9 Absolute Neuts (auto) 4.4 Neutrophils % 69.4 Lymphocytes % 23.5 D Monocytes % 4.3 Eosinophils % 2.1 Basophils % 0.7 Nucleated RBC % 0 PT with INR INR Sodium 136 Potassium 4.2 Chloride 102 Carbon Dioxide 26 Anion Gap 9 BUN 13.4 Creatinine 0.6 Est GFR (CKD-EPI)AfAm 108.55 Est GFR (CKD-EPI)NonAf 93.66 POC Glucometer 348 Random Glucose 306 H* Calcium 8.4 L Total Bilirubin AST ALT Alkaline Phosphatase Creatine Kinase Troponin I Total Protein Albumin Triglycerides Cholesterol Total LDL Cholesterol HDL Cholesterol Urine Color Urine Appearance Urine pH Ur Specific [place] Urine Protein Urine Glucose (UA) Urine Ketones Urine Blood Urine Nitrite Urine Bilirubin Urine Urobilinogen Ur Leukocyte Esterase Urine WBC (Auto) Urine RBC (Auto) Urine Casts (Auto) U Epithel Cells (Auto) Urine Bacteria (Auto) Blood Type Antibody Screen Active Medications Generic Name Dose Route Start Last Admin Trade Name Freq PRN Reason Stop Dose Admin Albuterol Sulfate 2 puff 08/02/18 15:30 Ventolin Hfa Inhaler - IH Q4H PRN SHORTNESS OF BREATH Atorvastatin Calcium 20 mg 08/02/18 22:00 08/02/18 22:40 Lipitor - PO 20 mg HS TOM Administration Diltiazem HCl 120 mg 08/03/18 10:00 08/03/18 10:06 Cardizem Cd - PO Not Given DAILY TOM Heparin Sodium (Porcine) 5,000 unit 08/02/18 22:00 08/03/18 10:05 Heparin - SQ 5,000 unit BID TOM Administration Insulin Aspart 0 vial 08/02/18 17:15 08/03/18 06:03 Novolog Vial Sliding Scale - SQ 8 unit ACHS TOM Administration Protocol Meclizine HCl 25 mg 08/03/18 09:53 08/03/18 10:05 Antivert - PO 25 mg Q6H PRN Administration VERTIGO Metoprolol Succinate 25 mg 08/03/18 10:00 08/03/18 10:07 Toprol Xl - PO Not Given DAILY TOM Mirtazapine 15 mg 08/02/18 22:00 08/02/18 22:40 Remeron - PO 15 mg HS TOM Administration Montelukast Sodium 10 mg 08/02/18 22:00 08/02/18 22:40 Singulair - PO 10 mg HS TOM Administration Pantoprazole Sodium 40 mg 08/03/18 10:00 08/03/18 10:05 Protonix - PO 40 mg DAILY TOM Administration Silver Sulfadiazine 1 applic 08/02/18 18:00 08/03/18 10:12 Silvadene - TP 1 applic QID TOM Administration Sitagliptin Phosphate 100 mg 08/03/18 07:00 08/03/18 06:03 Januvia - PO 100 mg DAILY@0700 TOM Administration Solifenacin 5 mg 08/03/18 10:00 08/03/18 10:05 Vesicare - PO 5 mg DAILY TOM Administration Tolterodine Tartrate 4 mg 08/03/18 10:00 Detrol La - PO DAILY TOM Valsartan 80 mg 08/03/18 10:00 08/03/18 10:06 Diovan - PO Not Given DAILY TOM ASSESSMENT/PLAN: dissiness , cerebellar ataxia, continue with antivert, appreciated neuro consult , reviewed the MRI/MRA brain report , no new acute changes, 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, shows high grade stenosis of R and L 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, ordered CTA, will discuss with Neuro, reviewed the cT scan from , no acute changes , microvascular changes , mild , Essential HTN, am BP was low sbp was 97 , will recheck and Hold BP meds for SBP<100, is on Diovan, diltiazem , metoprolol, DM uncontrolled , continue januvia , novolog , and fu with FS, check hba1c, asthma continue inhalers , singulair , stable , DVT prophylaxis, heparin , Problem List - Problems (1) Cerebellar ataxia Code(s): 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
--- NOTE | 2018-08-03 13:50 | PN ---
Progress Note (short form) - Note Progress Note: 68 year old female history of asthma, dm htn. Patient came to hospital for acute vertigo, she is feeling spinnning sensation. There is no other focal neurological symptoms, including dysphagia, dysarthria or diplopia Patinet has no loc, no seizrue like activity, no weaknes or nubness. her mri of brain is normal, and her mra for post circulation showed there is bilateral drawing supervisor stenosis. most anai asymptomatic. P NEUROLOGICAL EXAMIANTION Alert oriented x 3, speech is normal, afebrile and neck is supple bp 143/86 eomi, no nystagmus, pupils reactive no face asymmetry motor 5/5 all ext able to walk around ftn is normal ct head is pending Assessment/Plan 1 .most anai bppv Continue meclizine prn pt 2. Asymptomatic bilateral DIRECTOR OF OUTPATIENT SERVICES stenosis, no acute stroke add aspirin and lipitor 20 mg once a day Thanking you so much Nithin Byrd MD
[2018-08-03] MEDS: ASPIRIN 81 MG CHEWABLE TABLETS PO SCH (14:41)
[2018-08-03] MEDS ORDERED: INSULIN (NOVOLOG) ASPART 100 UNITS/ML 10ML VIAL ONE (16:49)
--- NOTE | 2018-08-03 17:04 | EKG ---
Test Reason : Blood Pressure : / mmHG Vent. Rate : 092 BPM Atrial Rate : 092 BPM P-R Int : 140 ms QRS Dur : 128 ms QT Int : 392 ms P-R-T Axes : 047 -70 021 degrees QTc Int : 484 ms NORMAL SINUS RHYTHM POSSIBLE LEFT ATRIAL ENLARGEMENT RIGHT BUNDLE BRANCH BLOCK LEFT ANTERIOR FASCICULAR BLOCK BIFASCICULAR BLOCK LEFT VENTRICULAR HYPERTROPHY CANNOT RULE OUT SEPTAL INFARCT , AGE UNDETERMINED ABNORMAL ECG WHEN COMPARED WITH ECG OF 02-JAN-2011 11:21, LEFT ANTERIOR FASCICULAR BLOCK IS NOW PRESENT MINIMAL CRITERIA FOR SEPTAL INFARCT ARE NOW PRESENT NON-SPECIFIC CHANGE IN ST SEGMENT IN ANTERIOR LEADS T WAVE INVERSION NOW EVIDENT IN ANTERIOR LEADS Confirmed by MD MALLY, AMNA ([id number]) on 08/03/2018 5:03:54 PM Referred By: Confirmed By:AMNA BAL MD
[2018-08-03] MEDS: ATORVASTATIN CA 20 MG TABLET (FP) PO SCH (21:34)
[2018-08-03] MEDS: MIRTAZAPINE 15 MG TABLET (FP) PO SCH (21:35)
[2018-08-03] MEDS: MONTELUKAST NA 10 MG TABLET PO SCH (21:35)
[2018-08-04] MEDS: sitaGLIPtin PHOSPHATE 100 MG TABLET (FP) PO SCH (06:12)
[2018-08-04] MEDS: INSULIN SLIDING SCALE (NOVOLOG) 1 VIAL SQ SCH ×4 (06:12→22:30)
[2018-08-04 07:56] LABS: BASO % 0.4 % (0-2.0); EOS % 5.2 % (0-4.5); HEMATOCRIT 36.6 % (32.4-45.2); HEMOGLOBIN 12.3 GM/dL (10.7-15.3); LYMPH % 32.6 % (8-40); MCH 31.3 pg (25.7-33.7); MCHC 33.6 g/dl (32.0-36.0); MEAN CELL VOLUME 93.3 fl (80-96); MEAN PLT VOLUME 9.8 fl (7.5-11.1); MONO % 6.3 % (3.8-10.2); NEUT % 55.5 % (42.8-82.8); RBC 3.92 M/mm3 (3.60-5.2); RDW 12.4 % (11.6-15.6); WHITE BLOOD COUNT 6.8 K/mm3 (4.0-10.0)
[2018-08-04 08:48] LABS: ALBUMIN 2.8 g/dl (3.4-5.0); BILIRUBIN,TOTAL 0.5 mg/dL (0.2-1); BLOOD UREA NITROGEN 18.6 mg/dL (7-18); CALCIUM 8.3 mg/dL (8.5-10.1); CREATININE 0.8 mg/dL (0.55-1.3); POTASSIUM 4.4 mmol/L (3.5-5.1); TOT PROT 5.5 g/dl (6.4-8.2)
[2018-08-04 09:20] LABS: PLATELET COUNT 259 K/MM3 (134-434)
[2018-08-04] MEDS ORDERED: PT OWN MED DRAWER 7, Y5N ONE (09:37)
[2018-08-04] MEDS: PANTOPRAZOLE 40 MG TABLET (FP) PO SCH (09:44)
[2018-08-04] MEDS: ASPIRIN 81 MG CHEWABLE TABLETS PO SCH (09:44)
[2018-08-04] MEDS: MECLIZINE HCL 25 MG TABLET (FP) PO PRN ×2 (09:44→16:45)
[2018-08-04] MEDS: TOLTERODINE TARTRATE LA 4 MG CAP.SR.24H (FP) PO SCH (09:44)
[2018-08-04] MEDS: VALSARTAN 80 MG TABLET (UD) PO SCH (09:45)
[2018-08-04] MEDS: metoPROLOL SUCCINATE 25 MG TAB.SR.24H (FP) PO SCH (09:45)
[2018-08-04] MEDS: SOLIFENACIN SUCCINATE 5 MG TAB PO SCH (09:45)
[2018-08-04] MEDS: HEPARIN NA (PORCINE) 5,000 UNITS/ML 1ML VIAL SQ SCH ×2 (09:46→22:26)
[2018-08-04] MEDS: SILVER SULFADIAZINE 1% TOP CREAM 50 GM JAR TP SCH ×3 (12:20→22:28)
--- NOTE | 2018-08-04 17:35 | PN ---
Progress Note, Physician Chief Complaint: dizziness, unsteady gait. patient refusing to be sent home on insulin. also informs me that she is at times noncompliant with both her evening metformin and lipitor. has been told by her pcp that she may need insulin, but she refused. she is seeking possible rehab for ongoing dizziness and unsteady gait. History of Present Illness: Patient is a 68 year old female with past medical history of diabetes II, hypertension, HLD and asthma. She presents to the ED with vertigo. Prior to admission, she went to [facility] ED and reportedly had a CT head and blood work which was normal and she was sent home. She continued to have vertigo and felt like she couldn't walk without falling. She has no other symptoms, denies cp, sob, palpitations, abdominal pain, n/v/d, no headaches. No recent illness or travel. discussed high blood sugars, elevated Hmga1c and elevated lipids with patient. She informs me that she forgets to take her medications at times and has been told in the past that she may need insulin but has been refusing. she is still refusing when I asked her to re consider home insulin as her diabetes is uncontrolled and it is affecting her vision. she is in agreement to go to rehab. - Current Medication List Current Medications: Active Medications Albuterol Sulfate (Ventolin Hfa Inhaler -) 2 puff IH Q4H PRN PRN Reason: SHORTNESS OF BREATH Aspirin (Asa -) 81 mg PO DAILY [facility] Last Admin: 08/04/18 09:44 Dose: 81 mg Atorvastatin Calcium (Lipitor -) 20 mg PO HS [facility] Last Admin: 08/03/18 21:34 Dose: 20 mg Diltiazem HCl (Cardizem Cd -) 120 mg PO DAILY [facility] Last Admin: 08/04/18 09:45 Dose: Not Given Heparin Sodium (Porcine) (Heparin -) 5,000 unit SQ BID [facility] Last Admin: 08/04/18 09:46 Dose: 5,000 unit Insulin Aspart (Novolog Vial Sliding Scale -) 1 vial SQ [facility]; Protocol Insulin Detemir (Levemir Vial) 10 units SQ BID@0700,2200 [facility] Meclizine HCl (Antivert -) 25 mg PO Q6H PRN PRN Reason: VERTIGO Last Admin: 08/04/18 16:45 Dose: 25 mg Metoprolol Succinate (Toprol Xl -) 25 mg PO DAILY [facility] Last Admin: 08/04/18 09:45 Dose: Not Given Mirtazapine (Remeron -) 15 mg PO HS [facility] Last Admin: 08/03/18 21:35 Dose: 15 mg Montelukast Sodium (Singulair -) 10 mg PO HS [facility] Last Admin: 08/03/18 21:35 Dose: 10 mg Pantoprazole Sodium (Protonix -) 40 mg PO DAILY [facility] Last Admin: 08/04/18 09:44 Dose: 40 mg Silver Sulfadiazine (Silvadene -) 1 applic TP QID [facility] Last Admin: 08/04/18 12:20 Dose: Not Given Sitagliptin Phosphate (Januvia -) 100 mg PO DAILY@0700 [facility] Last Admin: 08/04/18 06:12 Dose: 100 mg Solifenacin (Vesicare -) 5 mg PO DAILY [facility] Last Admin: 08/04/18 09:45 Dose: 5 mg Tolterodine Tartrate (Detrol La -) 4 mg PO DAILY [facility] Last Admin: 08/04/18 09:44 Dose: 4 mg Valsartan (Diovan -) 80 mg PO DAILY [facility] Last Admin: 08/04/18 09:45 Dose: Not Given - Objective Vital Signs: Vital Signs Temperature 98.3 F 08/04/18 14:10 Pulse Rate 71 08/04/18 14:10 Respiratory Rate 18 08/04/18 14:10 Blood Pressure 100/62 08/04/18 14:10 O2 Sat by Pulse Oximetry (%) 97 08/04/18 09:00 Constitutional: Yes: Calm Eyes: Yes: WNL, Other (visua defect) HENT: Yes: Atraumatic Neck: Yes: Supple Cardiovascular: Yes: Regular Rate and Rhythm Respiratory: Yes: Regular, CTA Bilaterally Gastrointestinal: Yes: Normal Bowel Sounds ...Rectal Exam: Yes: Deferred Genitourinary: Yes: WNL Breast(s): Yes: WNL Musculoskeletal: Yes: WNL Extremities: Yes: WNL Edema: No Integumentary: Yes: WNL Neurological: Yes: Alert, Oriented Psychiatric: Yes: WNL, Alert, Oriented Labs: CBC, BMP 08/04/18 05:56 08/04/18 05:56 INR, PTT INR 0.91 (0.83-1.09) 08/02/18 14:00 Problem List - Problems (1) Diabetes Assessment/Plan: uncontrolled diabetes mellitus, blood sugars remain high in the 300s will tighten glucose sliding scale as well as add levemir 10 units bid. may need further uptitration of insulin a1c uncontrolled at 13 will need insulin if discharging patient home will need outpatient podiatry consult as well as yearly ophthalmology follow up. consider endocrine consult if remains uncontrolled. Code(s): E11.9 - TYPE 2 DIABETES MELLITUS WITHOUT COMPLICATIONS (2) Hyperlipidemia Assessment/Plan: non compliance with home lipitor. continue lipitor 20mg daily, will need outpatient follow up. Code(s): E78.5 - HYPERLIPIDEMIA, UNSPECIFIED (3) Cerebellar ataxia Assessment/Plan: Continue meclizine prn for dizziness. 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 gait training PT evaluation Code(s): R42 - DIZZINESS AND GIDDINESS (5) Prophylactic measure Assessment/Plan: fen tolerating po monitor electrolytes diabetic diet prophy ambulation scds Code(s): Z29.9 - ENCOUNTER FOR PROPHYLACTIC MEASURES, UNSPECIFIED Visit type - Emergency Visit Emergency Visit: Yes ED Registration Date: 08/02/18 Care time: The patient presented to the Emergency Department on the above date and was hospitalized for further evaluation of their emergent condition. - New Patient This patient is new to me today: Yes Date on this admission: 08/04/18 - Critical Care Critical Care patient: No - Discharge Referral Referred to [facility].: No
[2018-08-04] MEDS ORDERED: INSULIN (LEVEMIR) 100 UNITS/ML UNITS SQ ONE (17:49)
[2018-08-04] MEDS ORDERED: INSULIN (NOVOLOG) ASPART 100 UNITS/ML 10ML VIAL ONE (17:49)
[2018-08-04] MEDS ORDERED: INSULIN SLIDING SCALE (NOVOLOG) 1 VIAL SQ SCH (22:00)
[2018-08-04] MEDS: INSULIN (LEVEMIR) 100 UNITS/ML UNITS SQ SCH (22:26)
[2018-08-04] MEDS: ATORVASTATIN CA 20 MG TABLET (FP) PO SCH (22:28)
[2018-08-04] MEDS: MIRTAZAPINE 15 MG TABLET (FP) PO SCH (22:28)
[2018-08-04] MEDS: MONTELUKAST NA 10 MG TABLET PO SCH (22:31)
[2018-08-05] MEDS: INSULIN (LEVEMIR) 100 UNITS/ML UNITS SQ SCH ×2 (07:08→21:56)
[2018-08-05] MEDS: sitaGLIPtin PHOSPHATE 100 MG TABLET (FP) PO SCH (07:08)
[2018-08-05] MEDS: INSULIN SLIDING SCALE (NOVOLOG) 1 VIAL SQ SCH ×4 (07:09→21:58)
--- NOTE | 2018-08-05 07:46 | PN ---
Progress Note, Physician Chief Complaint: dizziness, unsteady gait. patient refusing to be sent home on insulin. also informs me that she is at times noncompliant with both her evening metformin and lipitor. has been told by her pcp that she may need insulin, but she refused. she is seeking possible rehab for ongoing dizziness and unsteady gait. History of Present Illness: Patient is a 68 year old female with past medical history of diabetes II, hypertension, HLD and asthma. She presents to the ED with vertigo. Prior to admission, she went to [facility] ED and reportedly had a CT head and blood work which was normal and she was sent home. She continued to have vertigo and felt like she couldn't walk without falling. She has no other symptoms, denies cp, sob, palpitations, abdominal pain, n/v/d, no headaches. No recent illness or travel. discussed high blood sugars, elevated Hmga1c and elevated lipids with patient. She informs me that she forgets to take her medications at times and has been told in the past that she may need insulin but has been refusing. she is still refusing when I asked her to re consider home insulin as her diabetes is uncontrolled and it is affecting her vision. she is in agreement to go to rehab after discharge - Current Medication List Current Medications: Active Medications Albuterol Sulfate (Ventolin Hfa Inhaler -) 2 puff IH Q4H PRN PRN Reason: SHORTNESS OF BREATH Aspirin (Asa -) 81 mg PO DAILY [facility] Last Admin: 08/04/18 09:44 Dose: 81 mg Atorvastatin Calcium (Lipitor -) 20 mg PO HS [facility] Last Admin: 08/04/18 22:28 Dose: 20 mg Diltiazem HCl (Cardizem Cd -) 120 mg PO DAILY [facility] Last Admin: 08/04/18 09:45 Dose: Not Given Heparin Sodium (Porcine) (Heparin -) 5,000 unit SQ BID [facility] Last Admin: 08/04/18 22:26 Dose: 5,000 unit Insulin Aspart (Novolog Vial Sliding Scale -) 1 vial SQ [facility]; Protocol Last Admin: 08/05/18 07:09 Dose: 6 units Insulin Detemir (Levemir Vial) 10 units SQ BID@0700,2200 [facility] Last Admin: 08/05/18 07:08 Dose: 10 units Meclizine HCl (Antivert -) 25 mg PO Q6H PRN PRN Reason: VERTIGO Last Admin: 08/04/18 16:45 Dose: 25 mg Metoprolol Succinate (Toprol Xl -) 25 mg PO DAILY [facility] Last Admin: 08/04/18 09:45 Dose: Not Given Mirtazapine (Remeron -) 15 mg PO HS [facility] Last Admin: 08/04/18 22:28 Dose: 15 mg Montelukast Sodium (Singulair -) 10 mg PO HS [facility] Last Admin: 08/04/18 22:31 Dose: 10 mg Pantoprazole Sodium (Protonix -) 40 mg PO DAILY [facility] Last Admin: 08/04/18 09:44 Dose: 40 mg Silver Sulfadiazine (Silvadene -) 1 applic TP QID [facility] Last Admin: 08/04/18 22:28 Dose: 1 applic Sitagliptin Phosphate (Januvia -) 100 mg PO DAILY@0700 [facility] Last Admin: 08/05/18 07:08 Dose: 100 mg Solifenacin (Vesicare -) 5 mg PO DAILY [facility] Last Admin: 08/04/18 09:45 Dose: 5 mg Tolterodine Tartrate (Detrol La -) 4 mg PO DAILY [facility] Last Admin: 08/04/18 09:44 Dose: 4 mg Valsartan (Diovan -) 80 mg PO DAILY [facility] Last Admin: 08/04/18 09:45 Dose: Not Given - Objective Vital Signs: Vital Signs Temperature 98.5 F 08/05/18 06:06 Pulse Rate 68 08/05/18 06:06 Respiratory Rate 18 08/05/18 06:06 Blood Pressure 118/60 08/05/18 06:06 O2 Sat by Pulse Oximetry (%) 98 08/04/18 21:00 Constitutional: Yes: Well Nourished, No Distress, Calm Eyes: Yes: WNL, Conjunctiva Clear, EOM Intact HENT: Yes: WNL, Atraumatic, Normocephalic Neck: Yes: WNL, Supple, Trachea Midline Cardiovascular: Yes: WNL, Regular Rate and Rhythm Respiratory: Yes: WNL, Regular, CTA Bilaterally Gastrointestinal: Yes: WNL, Normal Bowel Sounds, Soft ...Rectal Exam: Yes: Deferred Genitourinary: Yes: WNL Musculoskeletal: Yes: WNL Extremities: Yes: WNL Edema: No Peripheral Pulses WNL: Yes Integumentary: Yes: WNL Neurological: Yes: Ataxia, Unsteady Gait, Other (vertigo) ...Motor Strength: WNL Psychiatric: Yes: WNL, Alert, Oriented Labs: CBC, BMP 08/04/18 05:56 08/04/18 05:56 INR, PTT INR 0.91 (0.83-1.09) 08/02/18 14:00 - ....Imaging MRI: Report Reviewed (Impression: No acute infarct. No mass. No hemorrhage. Patchy high T2 signal lesions within the periventricular and subcortical white matter consistent with nonspecific white matter disease likely related to microvascular ischemic changes. 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 A dedicated CTA of the head is recommended for better evaluation.) Problem List - Problems (1) Diabetes Assessment/Plan: uncontrolled diabetes mellitus on admission,a1c uncontrolled at 13 BG now 126 continue to monitor BG AC/q HS novolog sliding scale tightened yesterday with the addition oflevemir 10 units bid. will need insulin if discharging patient home will need outpatient podiatry consult as well as yearly ophthalmology follow up. consider endocrine consult if remains uncontrolled. Code(s): E11.9 - TYPE 2 DIABETES MELLITUS WITHOUT COMPLICATIONS (2) Dizziness Assessment/Plan: evaluated by neurology, most likely BPPV continue meclezine, can titrate dose if remains dizzy/vertigo high BG could have also been contributing to dizziness, better glyemic control today fall precautions Code(s): R42 - DIZZINESS AND GIDDINESS (3) Hyperlipidemia Assessment/Plan: non compliance with home lipitor. continue lipitor 20mg daily, will need outpatient follow up. Code(s): E78.5 - HYPERLIPIDEMIA, UNSPECIFIED (4) Prophylactic measure Assessment/Plan: FEN tolerating po monitor electrolytes diabetic diet prophy ambulation scds Dispo maintain as in patient full code discharge planning Code(s): Z29.9 - ENCOUNTER FOR PROPHYLACTIC MEASURES, UNSPECIFIED Visit type - Emergency Visit Emergency Visit: Yes ED Registration Date: 08/02/18 Care time: The patient presented to the Emergency Department on the above date and was hospitalized for further evaluation of their emergent condition. - New Patient This patient is new to me today: Yes Date on this admission: 08/05/18 - Critical Care Critical Care patient: No - Discharge Referral Referred to [facility] Med [facility].C.: No
[2018-08-05 08:12] LABS: BASO % 0.9 % (0-2.0); EOS % 5.4 % (0-4.5); HEMATOCRIT 36.7 % (32.4-45.2); HEMOGLOBIN 12.4 GM/dL (10.7-15.3); LYMPH % 36.5 % (8-40); MCH 31.6 pg (25.7-33.7); MCHC 33.9 g/dl (32.0-36.0); MEAN CELL VOLUME 93.4 fl (80-96); MEAN PLT VOLUME 9.9 fl (7.5-11.1); MONO % 6.4 % (3.8-10.2); NEUT % 50.8 % (42.8-82.8); PLATELET COUNT 270 K/MM3 (134-434); RBC 3.93 M/mm3 (3.60-5.2); RDW 12.4 % (11.6-15.6); WHITE BLOOD COUNT 7.4 K/mm3 (4.0-10.0)
[2018-08-05 08:37] LABS: BLOOD UREA NITROGEN 17.4 mg/dL (7-18); CREATININE 0.6 mg/dL (0.55-1.3); POTASSIUM 4.2 mmol/L (3.5-5.1)
[2018-08-05 08:38] LABS: ALBUMIN 2.8 g/dl (3.4-5.0); BILIRUBIN,TOTAL 0.8 mg/dL (0.2-1); CALCIUM 8.8 mg/dL (8.5-10.1); MAGNESIUM 2.2 mg/dL (1.8-2.4); TOT PROT 5.6 g/dl (6.4-8.2)
[2018-08-05] MEDS ORDERED: PT OWN MED DRAWER 7, Y5N ONE (09:58)
[2018-08-05] MEDS: metoPROLOL SUCCINATE 25 MG TAB.SR.24H (FP) PO SCH (10:09)
[2018-08-05] MEDS: PANTOPRAZOLE 40 MG TABLET (FP) PO SCH (10:09)
[2018-08-05] MEDS: HEPARIN NA (PORCINE) 5,000 UNITS/ML 1ML VIAL SQ SCH ×2 (10:09→21:58)
[2018-08-05] MEDS: VALSARTAN 80 MG TABLET (UD) PO SCH (10:09)
[2018-08-05] MEDS: TOLTERODINE TARTRATE LA 4 MG CAP.SR.24H (FP) PO SCH (10:09)
[2018-08-05] MEDS: ASPIRIN 81 MG CHEWABLE TABLETS PO SCH (10:09)
[2018-08-05] MEDS: SOLIFENACIN SUCCINATE 5 MG TAB PO SCH (10:12)
[2018-08-05] MEDS: SILVER SULFADIAZINE 1% TOP CREAM 50 GM JAR TP SCH ×3 (10:23→22:04)
[2018-08-05 11:34] LABS: ANISOCYTOSIS 0; MACROCYTOSIS 0; PLATELET ESTIMATE NORMAL
[2018-08-05] MEDS: MECLIZINE HCL 25 MG TABLET (FP) PO PRN (12:48)
--- NOTE | 2018-08-05 13:58 | HOSP ---
Physical Examination Vital Signs: Vital Signs Temperature 98.5 F 08/05/18 10:00 Pulse Rate 73 08/05/18 10:00 Respiratory Rate 18 08/05/18 10:00 Blood Pressure 100/51 L 08/05/18 10:00 O2 Sat by Pulse Oximetry (%) 98 08/05/18 09:00 Labs: CBC, BMP 08/05/18 05:58 08/05/18 05:58
--- NOTE | 2018-08-05 15:57 | PN ---
Progress Note (short form) - Note Progress Note: 68 year old female history of asthma, dm htn. Patient came to hospital for acute vertigo, she is feeling spinnning sensation. There is no other focal neurological symptoms, including dysphagia, dysarthria or diplopia Patinet has no loc, no seizrue like activity, no weaknes or nubness. her mri of brain is normal, and her mra for post circulation showed there is bilateral insurance claims analyst stenosis. most likley asymptomatic. Her blood sugar was running high. There is no new focal symptoms, she continue to have vertigo sensaiton NEUROLOGICAL EXAMIANTION Alert oriented x 3, speech is normal, afebrile and neck is supple bp 143/86 eomi, no nystagmus, pupils reactive no face asymmetry motor 5/5 all ext able to walk around ftn is normal mri of brain and mra done mra showed bilateral insurance claims analyst stenosis Assessment/Plan 1 .most anai bppv Continue meclizine prn pt 2. 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
[2018-08-05] MEDS: MECLIZINE HCL 25 MG TABLET (FP) PO SCH ×2 (21:56→21:58)
[2018-08-05] MEDS: MONTELUKAST NA 10 MG TABLET PO SCH (21:58)
[2018-08-05] MEDS: ATORVASTATIN CA 20 MG TABLET (FP) PO SCH (21:58)
[2018-08-05] MEDS: MIRTAZAPINE 15 MG TABLET (FP) PO SCH (21:58)
--- NOTE | 2018-08-05 23:00 | PN ---
Progress Note (short form) - Note Progress Note: Paged for infiltrated IV site. Pt. states the IV site was tender to palpation, IV site not erythematous, non-purulent and without bruising. Will observe as there was no large fluid collection. Will monitor for pain and treat with Tylenol if needed.
[2018-08-06] MEDS: MECLIZINE HCL 25 MG TABLET (FP) PO SCH ×5 (06:36→17:10)
[2018-08-06] MEDS: sitaGLIPtin PHOSPHATE 100 MG TABLET (FP) PO SCH (06:36)
[2018-08-06] MEDS: INSULIN SLIDING SCALE (NOVOLOG) 1 VIAL SQ SCH ×4 (06:41→21:48)
[2018-08-06] MEDS: INSULIN (LEVEMIR) 100 UNITS/ML UNITS SQ SCH ×2 (06:46→22:21)
[2018-08-06 07:17] LABS: BASO % 0.6 % (0-2.0); HEMATOCRIT 35.9 % (32.4-45.2); LYMPH % 16.8 % (8-40); MCH 31.4 pg (25.7-33.7); MCHC 33.4 g/dl (32.0-36.0); MEAN CELL VOLUME 94.2 fl (80-96); MEAN PLT VOLUME 9.9 fl (7.5-11.1); MONO % 8.3 % (3.8-10.2); NEUT % 71.3 % (42.8-82.8); PLATELET COUNT 270 K/MM3 (134-434); RBC 3.81 M/mm3 (3.60-5.2); RDW 12.5 % (11.6-15.6); WHITE BLOOD COUNT 11.6 K/mm3 (4.0-10.0)
[2018-08-06 07:37] LABS: ALBUMIN 2.8 g/dl (3.4-5.0); BILIRUBIN,TOTAL 1.2 mg/dL (0.2-1); BLOOD UREA NITROGEN 21.1 mg/dL (7-18); CALCIUM 8.5 mg/dL (8.5-10.1); CREATININE 0.7 mg/dL (0.55-1.3); MAGNESIUM 1.9 mg/dL (1.8-2.4); POTASSIUM 4.7 mmol/L (3.5-5.1); TOT PROT 5.8 g/dl (6.4-8.2)
--- NOTE | 2018-08-06 07:50 | PN ---
Progress Note, Physician Chief Complaint: dizziness, unsteady gait. History of Present Illness: Patient is a 68 year old female with past medical history of diabetes II, hypertension, HLD and asthma. She presents to the ED with vertigo. Prior to admission, she went to [facility] ED and reportedly had a CT head and blood work which was normal and she was sent home. She continued to have vertigo and felt like she couldn't walk without falling. She has no other symptoms, denies cp, sob, palpitations, abdominal pain, n/v/d, no headaches. No recent illness or travel. discussed high blood sugars, elevated Hmga1c and elevated lipids with patient. She informs me that she forgets to take her medications at times and has been told in the past that she may need insulin but has been refusing. she is still refusing when I asked her to re consider home insulin as her diabetes is uncontrolled and it is affecting her vision. she is in agreement to go to rehab after discharge - Current Medication List Current Medications: Active Medications Albuterol Sulfate (Ventolin Hfa Inhaler -) 2 puff IH Q4H PRN PRN Reason: SHORTNESS OF BREATH Aspirin (Asa -) 81 mg PO DAILY [facility] Last Admin: 08/05/18 10:09 Dose: 81 mg Atorvastatin Calcium (Lipitor -) 20 mg PO HS [facility] Last Admin: 08/05/18 21:58 Dose: 20 mg Diltiazem HCl (Cardizem Cd -) 120 mg PO DAILY [facility] Last Admin: 08/05/18 10:08 Dose: 120 mg Heparin Sodium (Porcine) (Heparin -) 5,000 unit SQ BID [facility] Last Admin: 08/05/18 21:58 Dose: 5,000 unit Insulin Aspart (Novolog Vial Sliding Scale -) 1 vial SQ [facility]; Protocol Last Admin: 08/06/18 06:41 Dose: 10 units Insulin Detemir (Levemir Vial) 10 units SQ BID@0700,2200 [facility] Last Admin: 08/06/18 06:46 Dose: 10 units Meclizine HCl (Antivert -) 25 mg PO Q6H [facility] Last Admin: 08/06/18 06:36 Dose: 25 mg Metoprolol Succinate (Toprol Xl -) 25 mg PO DAILY [facility] Last Admin: 08/05/18 10:09 Dose: 25 mg Mirtazapine (Remeron -) 15 mg PO HS [facility] Last Admin: 08/05/18 21:58 Dose: 15 mg Montelukast Sodium (Singulair -) 10 mg PO HS [facility] Last Admin: 08/05/18 21:58 Dose: 10 mg Pantoprazole Sodium (Protonix -) 40 mg PO DAILY [facility] Last Admin: 08/05/18 10:09 Dose: 40 mg Silver Sulfadiazine (Silvadene -) 1 applic TP QID [facility] Last Admin: 08/05/18 22:04 Dose: 1 applic Sitagliptin Phosphate (Januvia -) 100 mg PO DAILY@0700 [facility] Last Admin: 08/06/18 06:36 Dose: 100 mg Solifenacin (Vesicare -) 5 mg PO DAILY [facility] Last Admin: 08/05/18 10:12 Dose: 5 mg Tolterodine Tartrate (Detrol La -) 4 mg PO DAILY [facility] Last Admin: 08/05/18 10:09 Dose: 4 mg Valsartan (Diovan -) 80 mg PO DAILY [facility] Last Admin: 08/05/18 10:09 Dose: 80 mg - Objective Vital Signs: Vital Signs Temperature 98.9 F 08/06/18 05:46 Pulse Rate 76 08/06/18 05:46 Respiratory Rate 18 08/06/18 05:46 Blood Pressure 124/81 08/06/18 05:46 O2 Sat by Pulse Oximetry (%) 96 08/05/18 21:00 Constitutional: Yes: Well Nourished, No Distress, Calm Eyes: Yes: WNL, Conjunctiva Clear, EOM Intact HENT: Yes: WNL, Atraumatic, Normocephalic Neck: Yes: WNL, Supple, Trachea Midline Cardiovascular: Yes: WNL, Regular Rate and Rhythm Respiratory: Yes: WNL, Regular, CTA Bilaterally Gastrointestinal: Yes: WNL, Normal Bowel Sounds, Soft ...Rectal Exam: Yes: Deferred Genitourinary: Yes: WNL Musculoskeletal: Yes: WNL Extremities: Yes: WNL Edema: No Peripheral Pulses WNL: Yes Integumentary: Yes: WNL Neurological: Yes: Ataxia (worsening when rising from supine position), Unsteady Gait ...Motor Strength: WNL Psychiatric: Yes: WNL, Alert, Oriented Labs: CBC, BMP 06/19/19 05:40 INR, PTT INR 0.91 (0.83-1.09) 08/02/18 14:00 - ....Imaging Cat Scan: Report Reviewed Problem List - Problems (1) Diabetes Assessment/Plan: uncontrolled diabetes mellitus on admission,a1c uncontrolled at 13 BG now 126 continue to monitor BG AC/q HS novolog sliding scale tightened with the addition levemir 10 units bid. Levemir held last night and BG in high 200-300s this am. Do not hold unless < 100 at HS will need insulin if discharging patient home will need outpatient podiatry consult as well as yearly ophthalmology follow up. consider endocrine consult if remains uncontrolled. Code(s): E11.9 - TYPE 2 DIABETES MELLITUS WITHOUT COMPLICATIONS (2) Dizziness Assessment/Plan: evaluated by neurology, most likely BPPV increase meclezine to 50 mg high BG could have also been contributing to dizziness SW looking into facilities that do outpatient vestibular rehab. Will arrange prior to DC fall precautions Code(s): R42 - DIZZINESS AND GIDDINESS (3) Hyperlipidemia Assessment/Plan: non compliance with home lipitor. continue lipitor 20mg daily, will need outpatient follow up. Code(s): E78.5 - HYPERLIPIDEMIA, UNSPECIFIED (4) Prophylactic measure Assessment/Plan: FEN tolerating po monitor electrolytes diabetic diet prophy ambulation scds Dispo maintain as in patient full code discharge planning Code(s): Z29.9 - ENCOUNTER FOR PROPHYLACTIC MEASURES, UNSPECIFIED Visit type - Emergency Visit Emergency Visit: Yes ED Registration Date: 08/02/18 Care time: The patient presented to the Emergency Department on the above date and was hospitalized for further evaluation of their emergent condition. - New Patient This patient is new to me today: No - Critical Care Critical Care patient: No - Discharge Referral Referred to [facility] Med [facility].: No
[2018-08-06] MEDS: HEPARIN NA (PORCINE) 5,000 UNITS/ML 1ML VIAL SQ SCH ×2 (09:41→21:53)
[2018-08-06] MEDS: VALSARTAN 40 MG TABLET (FP) PO SCH (09:41)
[2018-08-06] MEDS: metoPROLOL SUCCINATE 25 MG TAB.SR.24H (FP) PO SCH (09:42)
[2018-08-06] MEDS: TOLTERODINE TARTRATE LA 4 MG CAP.SR.24H (FP) PO SCH (09:42)
[2018-08-06] MEDS: ASPIRIN 81 MG CHEWABLE TABLETS PO SCH (09:42)
[2018-08-06] MEDS: PANTOPRAZOLE 40 MG TABLET (FP) PO SCH (09:42)
[2018-08-06] MEDS: SOLIFENACIN SUCCINATE 5 MG TAB PO SCH (09:42)
[2018-08-06 11:06] LABS: ANISOCYTOSIS 0; MACROCYTOSIS 0; PLATELET ESTIMATE NORMAL
[2018-08-06] MEDS: SILVER SULFADIAZINE 1% TOP CREAM 50 GM JAR TP SCH ×2 (14:12→21:56)
[2018-08-06] MEDS: MONTELUKAST NA 10 MG TABLET PO SCH (21:48)
[2018-08-06] MEDS: ATORVASTATIN CA 20 MG TABLET (FP) PO SCH (21:48)
[2018-08-06] MEDS: MIRTAZAPINE 15 MG TABLET (FP) PO SCH (21:48)
[2018-08-07] MEDS: MECLIZINE HCL 25 MG TABLET (FP) PO SCH ×4 (00:41→17:54)
[2018-08-07] MEDS ORDERED: PT OWN MED DRAWER 7, Y5N ONE ×2 (06:16→10:16)
[2018-08-07] MEDS: INSULIN (LEVEMIR) 100 UNITS/ML UNITS SQ SCH (06:21)
[2018-08-07] MEDS: INSULIN SLIDING SCALE (NOVOLOG) 1 VIAL SQ SCH ×4 (06:21→21:22)
[2018-08-07] MEDS: sitaGLIPtin PHOSPHATE 100 MG TABLET (FP) PO SCH (06:32)
[2018-08-07] MEDS ORDERED: INSULIN (LEVEMIR) 100 UNITS/ML UNITS SQ ONE ×3 (06:45→09:18)
[2018-08-07 07:48] LABS: ALBUMIN 2.7 g/dl (3.4-5.0); BILIRUBIN,TOTAL 1.1 mg/dL (0.2-1); CALCIUM 8.5 mg/dL (8.5-10.1); CREATININE 0.8 mg/dL (0.55-1.3); POTASSIUM 4.8 mmol/L (3.5-5.1); TOT PROT 5.5 g/dl (6.4-8.2)
[2018-08-07 07:51] LABS: BASO % 0.6 % (0-2.0); EOS % 4.3 % (0-4.5); HEMATOCRIT 34.1 % (32.4-45.2); HEMOGLOBIN 11.3 GM/dL (10.7-15.3); LYMPH % 29.8 % (8-40); MCH 31.3 pg (25.7-33.7); MCHC 33.2 g/dl (32.0-36.0); MEAN CELL VOLUME 94.3 fl (80-96); MEAN PLT VOLUME 9.7 fl (7.5-11.1); NEUT % 56.3 % (42.8-82.8); PLATELET COUNT 272 K/MM3 (134-434); RBC 3.61 M/mm3 (3.60-5.2); RDW 12.4 % (11.6-15.6); WHITE BLOOD COUNT 10.2 K/mm3 (4.0-10.0)
[2018-08-07] MEDS: PANTOPRAZOLE 40 MG TABLET (FP) PO SCH (10:04)
[2018-08-07] MEDS: VALSARTAN 40 MG TABLET (FP) PO SCH (10:05)
[2018-08-07] MEDS: HEPARIN NA (PORCINE) 5,000 UNITS/ML 1ML VIAL SQ SCH ×2 (10:05→21:22)
[2018-08-07] MEDS: metoPROLOL SUCCINATE 25 MG TAB.SR.24H (FP) PO SCH (10:05)
[2018-08-07] MEDS: ASPIRIN 81 MG CHEWABLE TABLETS PO SCH (10:05)
[2018-08-07] MEDS: SOLIFENACIN SUCCINATE 5 MG TAB PO SCH (10:06)
[2018-08-07] MEDS: SILVER SULFADIAZINE 1% TOP CREAM 50 GM JAR TP SCH ×3 (10:12→17:29)
[2018-08-07] MEDS: TOLTERODINE TARTRATE LA 4 MG CAP.SR.24H (FP) PO SCH (10:19)
[2018-08-07 10:51] LABS: ANISOCYTOSIS 0; MACROCYTOSIS 0; PLATELET ESTIMATE NORMAL
--- NOTE | 2018-08-07 13:49 | PN ---
Progress Note (short form) - Note Progress Note: 68 year old female history of asthma, dm htn. Patient came to hospital for acute vertigo, she is feeling spinnning sensation. There is no other focal neurological symptoms, including dysphagia, dysarthria or diplopia Patinet has no loc, no seizrue like activity, no weaknes or nubness. her mri of brain is normal, and her mra for post circulation showed there is bilateral pressure dispatcher stenosis. most likley asymptomatic. She is feeling much better today though she still have occasional vertigo sensation. NEUROLOGICAL EXAMIANTION Alert oriented x 3, speech is normal, afebrile and neck is supple bp 143/86 eomi, no nystagmus, pupils reactive no face asymmetry motor 5/5 all ext able to walk around FTN is normal mri of brain and mra done mra showed bilateral pressure dispatcher stenosis Assessment/Plan 1 .BPPV, continue Meclizine prn 2. 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
[2018-08-07] MEDS ORDERED: KETOROLAC TROMETHAMINE 30 MG/1 ML VIAL IM ONE (16:20)
[2018-08-07] MEDS ORDERED: traMADol HCL 50 MG TABLET PO PRN (16:49)
--- NOTE | 2018-08-07 17:19 | PN ---
Progress Note, Physician Chief Complaint: dizziness, unsteady gait. History of Present Illness: Patient is a 68 year old female with past medical history of diabetes II, hypertension, HLD and asthma. She presents to the ED with vertigo. Prior to admission, she went to [facility] ED and reportedly had a CT head and blood work which was normal and she was sent home. She continued to have vertigo and felt like she couldn't walk without falling. She has no other symptoms, denies cp, sob, palpitations, abdominal pain, n/v/d, no headaches. No recent illness or travel. discussed high blood sugars, elevated Hmga1c and elevated lipids with patient. She informs me that she forgets to take her medications at times and has been told in the past that she may need insulin but has been refusing. she is still refusing when I asked her to re consider home insulin as her diabetes is uncontrolled and it is affecting her vision. she is in agreement to go to rehab after discharge - Current Medication List Current Medications: Active Medications Albuterol Sulfate (Ventolin Hfa Inhaler -) 2 puff IH Q4H PRN PRN Reason: SHORTNESS OF BREATH Aspirin (Asa -) 81 mg PO DAILY [facility] Last Admin: 08/07/18 10:05 Dose: 81 mg Atorvastatin Calcium (Lipitor -) 20 mg PO [facility] Last Admin: 08/06/18 21:48 Dose: 20 mg Diltiazem HCl (Cardizem Cd -) 120 mg PO DAILY [facility] Last Admin: 08/07/18 10:05 Dose: 120 mg Heparin Sodium (Porcine) (Heparin -) 5,000 unit SQ BID [facility] Last Admin: 08/07/18 10:05 Dose: 5,000 unit Insulin Aspart (Novolog Vial Sliding Scale -) 1 vial SQ [facility]; Protocol Last Admin: 08/07/18 12:09 Dose: 10 units Insulin Detemir (Levemir Vial) 15 units SQ DAILY@0700 [facility] Insulin Detemir (Levemir Vial) 15 units SQ [facility] Meclizine HCl (Antivert -) 50 mg PO Q6HPO [facility] Last Admin: 08/07/18 12:27 Dose: 50 mg Metoprolol Succinate (Toprol Xl -) 25 mg PO DAILY [facility] Last Admin: 08/07/18 10:05 Dose: 25 mg Mirtazapine (Remeron -) 15 mg PO HS [facility] Last Admin: 08/06/18 21:48 Dose: 15 mg Montelukast Sodium (Singulair -) 10 mg PO HS [facility] Last Admin: 08/06/18 21:48 Dose: 10 mg Pantoprazole Sodium (Protonix -) 40 mg PO DAILY [facility] Last Admin: 08/07/18 10:04 Dose: 40 mg Silver Sulfadiazine (Silvadene -) 1 applic TP QID [facility] Last Admin: 08/07/18 10:22 Dose: 1 applic Sitagliptin Phosphate (Januvia -) 100 mg PO DAILY@0700 [facility] Last Admin: 08/07/18 06:32 Dose: 100 mg Solifenacin (Vesicare -) 5 mg PO DAILY [facility] Last Admin: 08/07/18 10:06 Dose: 5 mg Tolterodine Tartrate (Detrol La -) 4 mg PO DAILY [facility] Last Admin: 08/07/18 10:19 Dose: 4 mg Tramadol HCl (Ultram -) 50 mg PO Q8H PRN PRN Reason: PAIN LEVEL 6-10 Last Admin: 08/07/18 17:04 Dose: 50 mg Valsartan (Diovan -) 40 mg PO DAILY [facility] Last Admin: 08/07/18 10:05 Dose: 40 mg - Objective Vital Signs: Vital Signs Temperature 99.0 F 08/07/18 14:31 Pulse Rate 74 08/07/18 14:31 Respiratory Rate 18 08/07/18 14:31 Blood Pressure 103/55 L 08/07/18 14:31 O2 Sat by Pulse Oximetry (%) 94 L 08/07/18 10:00 Constitutional: Yes: Well Nourished, No Distress, Calm Eyes: Yes: WNL, Conjunctiva Clear, EOM Intact HENT: Yes: WNL, Atraumatic, Normocephalic Neck: Yes: WNL, Supple, Trachea Midline Cardiovascular: Yes: WNL, Regular Rate and Rhythm Respiratory: Yes: WNL, Regular, CTA Bilaterally Gastrointestinal: Yes: WNL, Normal Bowel Sounds, Soft ...Rectal Exam: Yes: Deferred Genitourinary: Yes: WNL Musculoskeletal: Yes: WNL Extremities: Yes: WNL Edema: No Peripheral Pulses WNL: Yes Integumentary: Yes: WNL Neurological: Yes: Ataxia, Unsteady Gait (needs 1 person assist while ambulating ) ...Motor Strength: WNL Psychiatric: Yes: WNL, Alert, Oriented Labs: CBC, BMP 08/07/18 06:40 08/07/18 06:40 INR, PTT INR 0.91 (0.83-1.09) 08/02/18 14:00 Problem List - Problems (1) Diabetes Assessment/Plan: uncontrolled diabetes mellitus on admission,a1c uncontrolled at 13 BG >200 today continue to monitor BG AC/q HS novolog sliding scale tightened -levemir increased 15mg bid. Do not hold unless <100 at HS will need insulin when discharging patient home will need outpatient podiatry consult as well as yearly ophthalmology follow up. consider endocrine consult if remains uncontrolled. Code(s): E11.9 - TYPE 2 DIABETES MELLITUS WITHOUT COMPLICATIONS (2) Dizziness Assessment/Plan: evaluated by neurology, most likely BPPV increased meclezine to 50 mg and dizziness less today high BG could have also been contributing to dizziness SW looking into facilities that do outpatient vestibular rehab. Will arrange prior to DC fall precautions Code(s): R42 - DIZZINESS AND GIDDINESS (3) Hyperlipidemia Assessment/Plan: non compliance with home lipitor. continue lipitor 20mg daily, will need outpatient follow up. Code(s): E78.5 - HYPERLIPIDEMIA, UNSPECIFIED (4) Prophylactic measure Assessment/Plan: FEN tolerating po monitor electrolytes diabetic diet prophy ambulation scds Dispo maintain as in patient full code discharge planning Code(s): Z29.9 - ENCOUNTER FOR PROPHYLACTIC MEASURES, UNSPECIFIED Visit type - Emergency Visit Emergency Visit: Yes ED Registration Date: 08/02/18 Care time: The patient presented to the Emergency Department on the above date and was hospitalized for further evaluation of their emergent condition. - New Patient This patient is new to me today: No - Critical Care Critical Care patient: No - Discharge Referral Referred to [facility] No
[2018-08-07] MEDS ORDERED: INSULIN (NOVOLOG) ASPART 100 UNITS/ML 10ML VIAL ONE (20:51)
[2018-08-07] MEDS: MIRTAZAPINE 15 MG TABLET (FP) PO SCH (21:22)
[2018-08-07] MEDS: ATORVASTATIN CA 20 MG TABLET (FP) PO SCH (21:22)
[2018-08-07] MEDS: MONTELUKAST NA 10 MG TABLET PO SCH (21:22)
[2018-08-07] MEDS ORDERED: INSULIN (LEVEMIR) 100 UNITS/ML UNITS SQ SCH ×2 (22:00)
[2018-08-08] MEDS: MECLIZINE HCL 25 MG TABLET (FP) PO SCH ×3 (00:54→11:46)
[2018-08-08] MEDS: sitaGLIPtin PHOSPHATE 100 MG TABLET (FP) PO SCH (06:26)
[2018-08-08] MEDS: INSULIN SLIDING SCALE (NOVOLOG) 1 VIAL SQ SCH ×2 (06:28→11:17)
[2018-08-08] MEDS ORDERED: INSULIN (LEVEMIR) 100 UNITS/ML UNITS SQ SCH (07:00)
--- NOTE | 2018-08-08 07:54 | DS ---
Physical Examination Vital Signs: Vital Signs Temperature 98.4 F 08/08/18 07:53 Pulse Rate 70 08/08/18 07:53 Respiratory Rate 20 08/08/18 07:53 Blood Pressure 118/55 L 08/08/18 07:53 O2 Sat by Pulse Oximetry (%) 95 08/07/18 21:00 Discharge Summary Reason For Visit: CEREBELLAR ATAXIA Current Active Problems Cerebellar ataxia (Acute) Diabetes (Acute) Dizziness (Acute) Hyperlipidemia (Acute) Prophylactic measure (Acute) Condition: Stable - Instructions - Home Medications Comprehensive Discharge Medication List: Ambulatory Orders Atorvastatin Ca [Lipitor] 20 mg PO HS 04/24/16 Diltiazem HCl [Diltiazem 24Hr Cd] 120 mg PO DAILY 04/24/16 Montelukast Na [Singulair -] 10 mg PO HS 04/24/16 Sitagliptin Phosphate [Januvia] 100 mg PO DAILY 04/24/16 Albuterol Sulfate [Proair Hfa] 8.5 gm IH PRN 07/20/17 Budesonide/Formeterol Fumarate [SYMBICORT 160/4.5mcg -] 1 inh PO DAILY 07/20/17 Metoprolol Succinate [Toprol Xl] 25 mg PO DAILY 07/20/17 Mirtazapine 15 mg PO DAILY 07/20/17 Naproxen 500 mg PO PRN PRN 07/20/17 Oxybutynin Chloride [Ditropan Xl] 10 mg PO DAILY 07/20/17 Pantoprazole Sodium 40 mg PO DAILY 07/20/17 Tolterodine Tartrate [Tolterodine Tartrate ER] 4 mg PO DAILY 07/20/17 Valsartan [Diovan] 80 mg PO DAILY 07/20/17 Silver Sulfadiazine [Silvadene] 1 applic TP QID #1 cream..g. 02/01/18 Alcohol Antiseptic Pads [Alcohol Prep Pads] 1 each TP ACHS #1 box 08/07/18 Aspirin [ASA -] 81 mg PO DAILY tab.chew 08/07/18 Insulin (Levemir) [Levemir Vial] 15 units SQ DAILY@0700 #100 units 08/07/18 Insulin (Levemir) [Levemir Vial] 15 units SQ HS #100 units 08/07/18 Insulin Sliding Scale [Novolog Vial Sliding Scale -] 1 vial SQ ACHS #100 units 08/07/18 Meclizine HCl [Antivert -] 50 mg PO Q6HPO #30 tablet 08/07/18 Miscellaneous Medical Supply [Glucometer Device] 1 each .ROUTE ASDIR #1 kit Miscellaneous [employer] Supply [Glucometer Test Strips #100] 1 each .ROUTE ASDIR # 1 box 08/07/18 Solifenacin Succinate [Vesicare -] 5 mg PO DAILY tab 08/07/18 Syrge-Ndl,Ins 0.3 ml Half Gabriel [Insulin Syringe] 1 each ACHS #1 disp.syrin - Discharge Referral Referred to [facility] No
[2018-08-08 07:58] LABS: BASO % 0.8 % (0-2.0); EOS % 4.5 % (0-4.5); HEMATOCRIT 31.7 % (32.4-45.2); HEMOGLOBIN 10.6 GM/dL (10.7-15.3); LYMPH % 30.2 % (8-40); MCH 31.7 pg (25.7-33.7); MCHC 33.4 g/dl (32.0-36.0); MEAN PLT VOLUME 9.9 fl (7.5-11.1); MONO % 8.7 % (3.8-10.2); NEUT % 55.8 % (42.8-82.8); PLATELET COUNT 268 K/MM3 (134-434); RBC 3.34 M/mm3 (3.60-5.2); RDW 12.5 % (11.6-15.6)
[2018-08-08 08:25] LABS: ALBUMIN 2.6 g/dl (3.4-5.0); BLOOD UREA NITROGEN 22.9 mg/dL (7-18); CALCIUM 8.6 mg/dL (8.5-10.1); CREATININE 0.8 mg/dL (0.55-1.3); POTASSIUM 4.4 mmol/L (3.5-5.1); TOT PROT 5.4 g/dl (6.4-8.2)
[2018-08-08 09:58] VITALS: BP 115/67; PULSE 80; TEMP 98.7
[2018-08-08] MEDS ORDERED: PT OWN MED DRAWER 7, Y5N ONE ×2 (10:01→13:17)
[2018-08-08] MEDS: VALSARTAN 40 MG TABLET (FP) PO SCH (10:03)
[2018-08-08] MEDS: ASPIRIN 81 MG CHEWABLE TABLETS PO SCH (10:03)
[2018-08-08] MEDS: TOLTERODINE TARTRATE LA 4 MG CAP.SR.24H (FP) PO SCH (10:03)
[2018-08-08] MEDS: SOLIFENACIN SUCCINATE 5 MG TAB PO SCH (10:03)
[2018-08-08] MEDS: PANTOPRAZOLE 40 MG TABLET (FP) PO SCH (10:03)
[2018-08-08] MEDS: HEPARIN NA (PORCINE) 5,000 UNITS/ML 1ML VIAL SQ SCH (10:03)
[2018-08-08] MEDS: metoPROLOL SUCCINATE 25 MG TAB.SR.24H (FP) PO SCH (10:03)
[2018-08-08 10:29] LABS: ANISOCYTOSIS 0; MACROCYTOSIS 0; PLATELET ESTIMATE NORMAL
[2018-08-08] MEDS ORDERED: INSULIN (NOVOLOG) ASPART 100 UNITS/ML 10ML VIAL ONE (11:16)
== END 2018-08-08 12:46 | disposition home health service (06) | DRG 149 ==
LOC: JER 11:21 → JERBED 12:56 → J4W 23:31 → J5S 08-06 18:55
PROVIDERS: ADMIT Internal Medicine; ATTEND Nurse Practitioner Acute Care
DX: H81.10 Benign paroxysmal vertigo, unspecified ear (principal); I10 Essential (primary) hypertension; J45.909 Unspecified asthma, uncomplicated; E11.65 Type 2 diabetes mellitus with hyperglycemia; I66.23 Occlusion and stenosis of bilateral posterior cerebral arteries; E78.5 Hyperlipidemia, unspecified; R26.81 Unsteadiness on feet
CPT/HCPCS: 36415; 70544-TC; 70551-TC; 80048; 80053; 81003; 82465; 82550; 82962; 83036; 83718; 83721; 83735; 84443; 84478; 84484; 85025; 85610; 86850; 86900; 86901; 93005; 93010; 97116-GP; 97161-GP; 99285-25; J1644; J7030

== ENCOUNTER 2018-10-25 16:50 | Emergency (ER) | payer OTHER ==
[2018-10-25 17:05] VITALS: BMI 22.1
--- NOTE | 2018-10-25 17:18 | PDOC ---
History of Present Illness - General Chief Complaint: Lightheaded Stated Complaint: DIZZINESS Time Seen by Provider: 10/25/18 17:17 - History of Present Illness Initial Comments: 10/25/18 17:23 68 year old female with past medical history of vertigo, diabetes II, hypertension, HLD, allergy to cats and asthma who presents with dizziness bilateral eye burning and tearing that started at 12:30 after visiting her neice who has a cat. The paitent denies any changes in vision or hearing. She denies any sensation or foreign body or pain to the eye. Denies using any eye drops, denies chemical exposure. SHe has no other complaints. BPPV as assessed by neuro at recent visit in july for vertigo ROS GENERAL/CONSTITUTIONAL: No fever or chills. No weakness. HEAD, EYES, EARS, NOSE AND THROAT: No change in vision. No sore throat. CARDIOVASCULAR: No chest pain or shortness of breath RESPIRATORY: No cough, wheezing, or hemoptysis. GASTROINTESTINAL: No nausea, vomiting, diarrhea or constipation. GENITOURINARY: No dysuria, frequency, or change in urination. MUSCULOSKELETAL: No joint or muscle swelling or pain. No neck or back pain. SKIN: No rash NEUROLOGIC: No headache, + vertigo, No loss of consciousness, or change in strength/sensation. PE GENERAL: Awake, alert, and fully oriented, in no acute distress HEAD: No signs of trauma, normocephalic, atraumatic EYES: PERRLA, EOMI, sclera anicteric, conjunctiva clear ENT: oropharynx clear without exudates. Moist mucosa NECK: Normal ROM, supple LUNGS: No distress, speaks full sentences, clear to auscultation bilaterally HEART: Regular rate and rhythm, normal S1 and S2, no murmurs, rubs or gallops, peripheral pulses normal and equal bilaterally. ABDOMEN: Soft, nontender, normoactive bowel sounds. No guarding, no rebound. No masses EXTREMITIES : Normal inspection, Normal range of motion, no edema. No clubbing or cyanosis. NEUROLOGICAL: Cranial nerves II through XII grossly intact. Normal speech, normal gait, no focal sensorimotor deficits SKIN: Warm, Dry, normal turgor, no rashes or lesions noted MDM DDX including but not limited to: allergic conjunctivits vertigo hyperglycemic r/o DKA/HHS W/U: - cbc, cmp, ua, ekg TX: - meclizine, benadryl, ivf ED Course: labwork unremarkable aside from hyperglycemia ivf reassess, still feeling dizzy, dose meclizine patient reassessed repeat bg 309 6 units insulin po trial and walked Areli Ballard, PGY2 Emergency Medicine Past History - Past Medical History Allergies/Adverse Reactions: Allergies Allergy/AdvReac Type Severity Reaction Status Date / Time No Known Allergies Allergy Verified 10/25/18 17:05 Home Medications: Ambulatory Orders Atorvastatin Ca [Lipitor] 20 mg PO HS 04/24/16 Diltiazem HCl [Diltiazem 24Hr Cd] 120 mg PO DAILY 04/24/16 Montelukast Na [Singulair -] 10 mg PO HS 04/24/16 Sitagliptin Phosphate [Januvia] 100 mg PO DAILY 04/24/16 Albuterol Sulfate [Proair Hfa] 8.5 gm IH PRN 07/20/17 Budesonide/Formeterol Fumarate [SYMBICORT 160/4.5mcg -] 1 inh PO DAILY 07/20/17 Metoprolol Succinate [Toprol Xl] 25 mg PO DAILY 07/20/17 Mirtazapine 15 mg PO DAILY 07/20/17 Naproxen 500 mg PO PRN PRN 07/20/17 Oxybutynin Chloride [Ditropan Xl] 10 mg PO DAILY 07/20/17 Pantoprazole Sodium 40 mg PO DAILY 07/20/17 Tolterodine Tartrate [Tolterodine Tartrate ER] 4 mg PO DAILY 07/20/17 Valsartan [Diovan] 80 mg PO DAILY 07/20/17 Silver Sulfadiazine [Silvadene] 1 applic TP QID #1 cream..g. 02/01/18 Alcohol Antiseptic Pads [Alcohol Prep Pads] 1 each TP ACHS #1 box 08/07/18 Aspirin [ASA -] 81 mg PO DAILY tab.chew 08/07/18 Insulin (Levemir) [Levemir Vial] 15 units SQ DAILY@0700 #100 units 08/07/18 Insulin (Levemir) [Levemir Vial] 15 units SQ HS #100 units 08/07/18 Insulin Sliding Scale [Novolog Vial Sliding Scale -] 1 vial SQ ACHS #100 units 08/07/18 Meclizine HCl [Antivert -] 50 mg PO Q6HPO #30 tablet 08/07/18 Miscellaneous Medical Supply [Glucometer Device] 1 each .ROUTE ASDIR #1 kit Miscellaneous Medical Supply [Glucometer Test Strips #100] 1 each .ROUTE ASDIR # 1 box 08/07/18 Solifenacin Succinate [Vesicare -] 5 mg PO DAILY tab 08/07/18 Syrge-Ndl,Ins 0.3 ml Half Gabriel [Insulin Syringe] 1 each ACHS #1 disp.syrin Walker [Ultra-Light Rollator] 1 each ASDIR #1 each 08/08/18 Asthma: Yes COPD: No Diabetes: Yes HTN: Yes - Immunization History Immunization Up to Date: No - Suicide/Smoking/Psychosocial Hx Smoking History: Never smoked Have you smoked in the past 12 months: No Hx Alcohol Use: No Drug/Substance Use Hx: No Substance Use Type: None Hx Substance Use Treatment: No *Physical Exam - Vital Signs Last Vital Signs Temp Pulse Resp BP Pulse Ox 98.4 F 90 18 161/74 97 10/25/18 17:02 10/25/18 17:02 10/25/18 17:02 10/25/18 17:02 10/25/18 17:02 ED Treatment Course - LABORATORY CBC & Chemistry Diagram: 10/25/18 17:43 10/25/18 17:43 *DC/Admit/Observation/Transfer Diagnosis at time of Disposition: Hyperglycemia, Vertigo, Allergic conjunctivitis - Discharge Dispostion Disposition: HOME Condition at time of disposition: Stable Decision to Admit order: No - Referrals Referrals: Hiren Morales MD [Primary Care Provider] - - Patient Instructions Printed Discharge Instructions: DI for Conjunctivitis, DI for Hyperglycemia -- Adult Additional Instructions: You were seen in the ED for complaints of burning eyes and elevated blood sugar In the ED you were evaluated with labwork and ekg Your results were largely unremarkable. There does not appear to be an acute need for immediate hospitalization. You are advised to follow up with your Primary Care Physician within 1 week. Avoid known triggers for allergies to the eyes such as cats. Return to the ED immediately if you experience dizziness, lightheadedness, nausea, vomiting, weakness in the arms or legs, chest pain or shortness of breath. - Post Discharge Activity
[2018-10-25] MEDS ORDERED: SODIUM CHLORIDE 1,000 ML IV SCH ×2 (17:30→19:00)
[2018-10-25] MEDS ORDERED: diphenhydrAMINE HCL 25 MG CAPSULE (FP) PO ONE ×2 (17:50→18:22)
[2018-10-25 17:54] LABS: BASO % 0.8 % (0-2.0); EOS % 1.3 % (0-4.5); HEMATOCRIT 43.7 % (32.4-45.2); HEMOGLOBIN 14.3 GM/dL (10.7-15.3); LYMPH % 16.8 % (8-40); MCH 30.7 pg (25.7-33.7); MCHC 32.7 g/dl (32.0-36.0); MEAN CELL VOLUME 93.9 fl (80-96); MEAN PLT VOLUME 9.5 fl (7.5-11.1); NEUT % 77.1 % (42.8-82.8); PLATELET COUNT 338 K/MM3 (134-434); RBC 4.66 M/mm3 (3.60-5.2); RDW 13.4 % (11.6-15.6); WHITE BLOOD COUNT 10.9 K/mm3 (4.0-10.0)
[2018-10-25 18:00] LABS: EPI CELLS 0.9 /HPF (0-5/HPF); HYALINE CASTS 0 /lpf (0-8); URINE APPEARANCE CLEAR; URINE BACTERIA 20.6 /hpf (NEGATIVE); URINE BILIRUBIN NEGATIVE (NEGATIVE); URINE COLOR YELLOW; URINE GLUCOSE (UA) 3+ (NEGATIVE); URINE KETONE NEGATIVE (NEGATIVE); URINE LEUK ESTERASE 1+ (NEGATIVE); URINE NITRITE NEGATIVE (NEGATIVE); URINE PROTEIN NEGATIVE (NEGATIVE); URINE RBC 1 /hpf (0-4); URINE UROBILINOGEN 0.2 mg/dL (0.2-1.0); URINE WBC 6 /hpf (0-5)
[2018-10-25 18:33] LABS: ALBUMIN 3.7 g/dl (3.4-5.0); BILIRUBIN,TOTAL 0.2 mg/dL (0.2-1); BLOOD UREA NITROGEN 11.5 mg/dL (7-18); CALCIUM 9.6 mg/dL (8.5-10.1); CREATININE 0.8 mg/dL (0.55-1.3); POTASSIUM 4.6 mmol/L (3.5-5.1); TOT PROT 7.4 g/dl (6.4-8.2)
[2018-10-25] MEDS ORDERED: MECLIZINE HCL 12.5 MG TABLET PO ONE (20:04)
--- NOTE | 2018-10-25 20:09 | PDOC ---
Attending Attestation - Resident Resident Name: Areli Ballard - ED Attending Attestation I have performed the following: I have examined & evaluated the patient, The case was reviewed & discussed with the resident, I agree w/resident's findings & plan, Exceptions are as noted - HPI HPI: 10/25/18 20:10 68-year-old female with history of hypertension, diabetes and asthma presents with dizziness/lightheadedness as well as eye redness and excessive lacrimation. - Physicial Exam PE: 10/25/18 20:11 pt is awake, alert, well nourished Normocephalic, atraumatic PERRLA, EOMI, +bilateral conjunctival injection No carotid bruits CTA RRR gait-stable - Medical Decision Making 10/25/18 20:13 pt is a 68 y/o female with hx/o dm, htn, ashma presenting with diziness (non- vertigo), and eye irritaton. pt is awake and alert, resting comfortably. VA is intact. minimal b/l injection of conjunctiva is noted. no focal neuro deficits are noted. gait is stable. will hydrate. will administer insulin murray, anai d/c.
[2018-10-25] MEDS ORDERED: MECLIZINE HCL 12.5 MG TABLET ONE (20:16)
[2018-10-25] MEDS ORDERED: INSULIN REGULAR HUMAN 100 UNITS/ML *VIAL IVPUSH ONE (21:32)
[2018-10-25 23:42] VITALS: BP 141/60; PULSE 70; TEMP 98
--- NOTE | 2018-10-26 16:45 | EKG ---
Test Reason : Blood Pressure : / mmHG Vent. Rate : 074 BPM Atrial Rate : 074 BPM P-R Int : 150 ms QRS Dur : 136 ms QT Int : 404 ms P-R-T Axes : 065 -66 025 degrees QTc Int : 448 ms NORMAL SINUS RHYTHM RIGHT BUNDLE BRANCH BLOCK LEFT ANTERIOR FASCICULAR BLOCK BIFASCICULAR BLOCK MODERATE VOLTAGE CRITERIA FOR LVH, MAY BE NORMAL VARIANT ABNORMAL ECG WHEN COMPARED WITH ECG OF 02-AUG-2018 13:06, MINIMAL CRITERIA FOR SEPTAL INFARCT ARE NO LONGER PRESENT Confirmed by ARLINE WINKLER MD ([id number]) on 10/26/2018 4:45:25 PM Referred By: Confirmed By:ARLINE WINKLER MD
== END 2018-10-25 22:10 | disposition home or self-care (01) ==
LOC: SUPCPDRO 16:50 → JER 16:50
PROC: 3E033VG Introduction of Insulin into Peripheral Vein, Percutaneous Approach (ICD-10-PCS; principal; 2018-10-25)
DX: H10.13 Acute atopic conjunctivitis, bilateral (principal); E11.65 Type 2 diabetes mellitus with hyperglycemia; Z79.4 Long term (current) use of insulin; I10 Essential (primary) hypertension; J45.909 Unspecified asthma, uncomplicated; Z91.048 Other nonmedicinal substance allergy status
CPT/HCPCS: 36415; 80053; 81003; 82962; 85025; 93005; 93010; 96374; 99284-25; J7030

== ENCOUNTER 2019-03-27 12:41 | Emergency (ER) | payer OTHER ==
[2019-03-27 12:59] VITALS: TEMP 97.8; BMI 23.6
--- NOTE | 2019-03-27 13:21 | PDOC ---
History of Present Illness - General Chief Complaint: CVA/TIA Stated Complaint: DIZZINESS Time Seen by Provider: 03/27/19 13:18 - History of Present Illness Initial Comments: 03/27/19 13:21 HPI: 68 y/o F with hx of vertigo, IDDM, HTN, HLD presenting with 2 days of LH. Symptoms are worse in the morning when getting out of bed; reports needing to get up slowly to prevent falling. The past 2 days she also noted that her Gluc has been 300-400s and has not been coming down with insulin. She also complains of increased urinary freq and dry mouth. Denies head trauma, LOC, chest pain, SOB, abd pain, n/n, diarrhea, cough, dysuria. PMHx: as noted above ROS: as noted SHx: Denies tobacco use; no alcohol use; no rec drugs Allergies: NKDA ROS: GENERAL/CONSTITUTIONAL: No fever or chills. +generalized weakness. HEAD, EYES, EARS, NOSE AND THROAT: No change in vision. No ear pain or discharge. No sore throat. CARDIOVASCULAR: No chest pain or shortness of breath RESPIRATORY: No cough, wheezing, or hemoptysis. GASTROINTESTINAL: No nausea, vomiting, diarrhea or constipation. GENITOURINARY: +increased freq; No dysuria or change in urination. MUSCULOSKELETAL: No joint or muscle swelling or pain. No neck or back pain. SKIN: No rash NEUROLOGIC: No headache, vertigo, loss of consciousness, or change in strength/ sensation. ENDOCRINE: No increased thirst. No abnormal weight change HEMATOLOGIC/LYMPHATIC: No anemia, easy bleeding, or history of blood clots. ALLERGIC/IMMUNOLOGIC: No hives or skin allergy. PE: GENERAL: Awake, alert, and fully oriented, no acute distress HEAD: No signs of trauma, normocephalic, atraumatic EYES: EOMI, sclera anicteric, conjunctiva clear ENT: Auricles normal inspection, hearing grossly normal, nares patent, oropharynx clear without exudates. dry mucosa NECK: Normal ROM, no lymphadenopathy LUNGS: No increased work of breathing, symmetrical chest rise, clear to auscultation bilaterally, no wheezes, crackles or rhonchi HEART: Regular rate, regular rhythm, normal S1 and S2, no murmur, peripheral pulses 2+ and equal bilaterally. ABDOMEN: Soft, nondistended, nontender, normoactive bowel sounds. No guarding, no rebound. No masses. No CVAT MUSCULOSKELETAL: FROM NEUROLOGICAL: Cranial nerves II through XII grossly intact. Normal speech, normal gait, no focal sensorimotor deficits SKIN: Warm, Dry, normal turgor, no rashes or lesions noted Past History - Past Medical History Allergies/Adverse Reactions: Allergies Allergy/AdvReac Type Severity Reaction Status Date / Time No Known Allergies Allergy Verified 03/27/19 12:59 Home Medications: Ambulatory Orders Atorvastatin Ca [Lipitor] 20 mg PO HS 04/24/16 Diltiazem HCl [Diltiazem 24Hr Cd] 120 mg PO DAILY 04/24/16 Montelukast Na [Singulair -] 10 mg PO HS 04/24/16 Sitagliptin Phosphate [Januvia] 100 mg PO DAILY 04/24/16 Albuterol Sulfate [Proair Hfa] 8.5 gm IH PRN 07/20/17 Budesonide/Formeterol Fumarate [SYMBICORT 160/4.5mcg -] 1 inh PO DAILY 07/20/17 Metoprolol Succinate [Toprol Xl] 25 mg PO DAILY 07/20/17 Mirtazapine 15 mg PO DAILY 07/20/17 Naproxen 500 mg PO PRN PRN 07/20/17 Oxybutynin Chloride [Ditropan Xl] 10 mg PO DAILY 07/20/17 Pantoprazole Sodium 40 mg PO DAILY 07/20/17 Tolterodine Tartrate [Tolterodine Tartrate ER] 4 mg PO DAILY 07/20/17 Valsartan [Diovan] 80 mg PO DAILY 07/20/17 Silver Sulfadiazine [Silvadene] 1 applic TP QID #1 cream..g. 02/01/18 Alcohol Antiseptic Pads [Alcohol Prep Pads] 1 each TP ACHS #1 box 08/07/18 Aspirin [ASA -] 81 mg PO DAILY tab.chew 08/07/18 Insulin (Levemir) [Levemir Vial] 15 units SQ DAILY@0700 #100 units 08/07/18 Insulin (Levemir) [Levemir Vial] 15 units SQ HS #100 units 08/07/18 Insulin Sliding Scale [Novolog Vial Sliding Scale -] 1 vial SQ ACHS #100 units 08/07/18 Meclizine HCl [Antivert -] 50 mg PO Q6HPO #30 tablet 08/07/18 Miscellaneous Medical Supply [Glucometer Device] 1 each .ROUTE ASDIR #1 kit Miscellaneous Medical Supply [Glucometer Test Strips #100] 1 each .ROUTE ASDIR # 1 box 08/07/18 Solifenacin Succinate [Vesicare -] 5 mg PO DAILY tab 08/07/18 Syrge-Ndl,Ins 0.3 ml Half Gabriel [Insulin Syringe] 1 each ACHS #1 disp.syrin Walker [Ultra-Light Rollator] 1 each ASDIR #1 each 08/08/18 Asthma: Yes COPD: No Diabetes: Yes HTN: Yes - Immunization History Immunization Up to Date: No - Psycho Social/Smoking Cessation Hx Smoking History: Never smoked Have you smoked in the past 12 months: No Information on smoking cessation initiated: No Hx Alcohol Use: No Drug/Substance Use Hx: No Substance Use Type: None Hx Substance Use Treatment: No *Physical Exam - Vital Signs Last Vital Signs Temp Pulse Resp BP Pulse Ox 97.8 F 87 18 114/61 95 03/27/19 12:57 03/27/19 12:57 03/27/19 12:57 03/27/19 12:57 03/27/19 12:57 ED Treatment Course - LABORATORY CBC & Chemistry Diagram: 03/27/19 14:33 03/27/19 14:33 Medical Decision Making - Medical Decision Making 03/27/19 14:47 68 y/o F with hx of vertigo, IDDM, HTN, HLD presenting with 2 days of LH associated with dry mouth and poor glucose control. VSS, AF. PE unremarkable. Likely dehydration 2/2 hyperglycemia. Will rule out arrhythmia, lyte abnormality , ACS, infection -cbc, cmp, cardiac prof, ekg, mg -ivf -reassess 03/27/19 16:23 patient received 2L ivf and feels signficantly improved is comfortbale with DC remainder of labs wnl discussed importance of med compliance and adequate hydration recommended followup with PCP and home day care provider within 3-5days Discharge - Discharge Information Problems reviewed: Yes Clinical Impression/Diagnosis: Dehydration, Hyperglycemia, Light-headedness Condition: Improved Disposition: HOME - Follow up/Referral Referrals: Hiren Morales MD [Primary Care Provider] - - Patient Discharge Instructions Patient Printed Discharge Instructions: DI for Hyperglycemia -- Adult, DI for Dehydration -- Adult Additional Instructions: Additional Instructions: Please return to the emergency department with any new or worsening symptoms or concerns including seizures, fainting, worsening chest pain. Please follow up with your primary care physician within 72 hours. Please followup with your home day care provider (your diabetes doctor) within 3 days Please take your insulin medications as prescribed - Post Discharge Activity
[2019-03-27] MEDS ORDERED: SODIUM CHLORIDE 1,000 ML IV STA ×2 (13:43→14:00)
[2019-03-27 14:55] LABS: BASO % 0.3 % (0-2.0); EOS % 0.1 % (0-4.5); HEMATOCRIT 37.5 % (32.4-45.2); HEMOGLOBIN 12.5 GM/dL (10.7-15.3); LYMPH % 12.6 % (8-40); MCH 31.7 pg (25.7-33.7); MCHC 33.3 g/dl (32.0-36.0); MEAN CELL VOLUME 95.3 fl (80-96); MEAN PLT VOLUME 9.5 fl (7.5-11.1); MONO % 12.5 % (3.8-10.2); NEUT % 74.5 % (42.8-82.8); PLATELET COUNT 212 K/MM3 (134-434); RBC 3.94 M/mm3 (3.60-5.2); RDW 12.6 % (11.6-15.6)
--- NOTE | 2019-03-27 14:55 | PDOC ---
Documentation entered by Alexander Pedroza SCRIBE, acting as scribe for Yash Beltran MD. Yash Beltran MD: This documentation has been prepared by the Kasia foster Nirvannie, SCRIBE, under my direction and personally reviewed by me in its entirety. I confirm that the documentation accurately reflects all work, treatment, procedures, and medical decision making performed by me. Attending Attestation - Resident Resident Name: ErastoDarlene - ED Attending Attestation I have performed the following: I have examined & evaluated the patient, The case was reviewed & discussed with the resident, I agree w/resident's findings & plan, Exceptions are as noted - HPI HPI: 03/27/19 14:38 CC: Lightheadedness HPI: The patient is a 68 year old female, with a significant past medical history of vertigo, IDDM, HTN, HLD, who presents to the emergency department with 2 days of lightheadedness. As per patient, she feels as if she is dehydrated. She denies recent chest pain or shortness of breath. Allergies: NKDA Primary Care Physician: Dr. Blum - Physicial Exam PE: 03/27/19 16:43 Vitals: Triage Vital signs reviewed General Appearance: No acute distress, well nourished well developed, Cardiac: Regular rate and rhythym, no murmurs, no rubs, no gallops, Lungs: Clear to auscultation bilateral, good air movement bilaterally, Abdomen: Soft, non distended, normal bowel sounds, non tender to palpation Extremities: Full range of motion to all extremities, no cyanosis, clubbing, or edema Skin: Warm and dry, no rashes or lesions, no rash, no petechiae Psych: Normal mood, normal affect - Medical Decision Making 03/27/19 16:44 History examination consistent with polyuria polydipsia secondary to poorly controlled diabetes and secondaryOrthostatic hypotension We will hydrate check labs observe and reassess Reevaluation status post 2 L of fluid patient feels much better able to stand without lightheadedness and dizziness Her laboratory analysis unremarkable she is advised to take medications exactly as prescribed and follow-up with her wheel blocker this week Findings, need for follow-up and strict return instructions discussed with patient.
[2019-03-27 15:30] LABS: ALBUMIN 2.8 g/dl (3.4-5.0); ALK PHOS 110 U/L (45-117); ANION GAP 10 MMOL/L (8-16); BILIRUBIN,TOTAL 0.9 mg/dL (0.2-1); BLOOD UREA NITROGEN 11.5 mg/dL (7-18); CALCIUM 8.2 mg/dL (8.5-10.1); CHLORIDE 99 mmol/L (98-107); CO2 23 mmol/L (21-32); CREATININE 0.8 mg/dL (0.55-1.3); GLUCOSE,RANDOM 362 mg/dL (74-106); MAGNESIUM 1.9 mg/dL (1.8-2.4); POTASSIUM 5.1 mmol/L (3.5-5.1); SGOT/AST 16 U/L (15-37); SGPT/ALT 24 U/L (13-61); SODIUM 132 mmol/L (136-145); TOT PROT 5.9 g/dl (6.4-8.2)
[2019-03-27] MEDS ORDERED: sitaGLIPtin PHOSPHATE 50 MG TABLET PO ONE (15:42)
[2019-03-27] MEDS ORDERED: metFORMIN HCL 500 MG TABLET (FP) PO ONE (15:42)
[2019-03-27 16:59] VITALS: BP 125/61; PULSE 81
--- NOTE | 2019-03-28 14:33 | EKG ---
Test Reason : Blood Pressure : / mmHG Vent. Rate : 085 BPM Atrial Rate : 085 BPM P-R Int : 134 ms QRS Dur : 128 ms QT Int : 412 ms P-R-T Axes : 039 -72 021 degrees QTc Int : 490 ms NORMAL SINUS RHYTHM RIGHT BUNDLE BRANCH BLOCK LEFT ANTERIOR FASCICULAR BLOCK BIFASCICULAR BLOCK MINIMAL VOLTAGE CRITERIA FOR LVH, MAY BE NORMAL VARIANT SEPTAL INFARCT , AGE UNDETERMINED ABNORMAL ECG Confirmed by MD BRUEC, PIPO ([id number]) on 03/28/2019 2:33:11 PM Referred By: Confirmed By:PIPO BARRERA MD
== END 2019-03-27 16:51 | disposition home or self-care (01) ==
LOC: JER 12:41
PROC: 3E0337Z Introduction of Electrolytic and Water Balance Substance into Peripheral Vein, Percutaneous Approach (ICD-10-PCS; principal; 2019-03-27)
DX: E86.0 Dehydration (principal); R42 Dizziness and giddiness; E11.65 Type 2 diabetes mellitus with hyperglycemia; I10 Essential (primary) hypertension; E78.5 Hyperlipidemia, unspecified
CPT/HCPCS: 36415; 80053; 82550; 82962; 83735; 84484; 85025; 93005; 93010; 96360; 96361; 99283-25; J7030